=== PATIENT | male | born 1945 | race Caucasian/White ===

== ENCOUNTER 2018-03-15 15:14 | Inpatient (IN) ==
[2018-03-15] MEDS ORDERED: Sod Chloride 0.9% Inj 1,000 ML IV.SIG ONE (15:21)
--- NOTE | 2018-03-15 15:32 | ED ---
HPI General Chief Complaint: Medical Clearance Stated Complaint: evac Time Seen by Provider: 03/15/18 15:21 Source: patient and EMS Mode of arrival: EMS Limitations: no limitations History of Present Illness HPI narrative: 72-year-old male patient with history of a femoral bypass done at [facility] 4 days ago, released yesterday, presents to the ER today because he started not feeling well, abdominal pains, dizziness, and nausea. He had a blood pressure of 60/30 according to EMS while he was on the ambulance. He currently denies any fevers, chest pains, shortness of breath, or other issues. Modifying Factors: None Associated Signs & Symptoms: Not feeling well, abdominal pains, dizziness, nausea Risk Factors: Recent femoral bypass Related Data Home Medications Medication Instructions Recorded Confirmed codeine sulfate 30 mg PO Q4-6H PRN 03/15/18 03/15/18 hydrochlorothiazide 25 mg PO DAILY 03/15/18 03/15/18 lisinopril 40 mg PO DAILY 03/15/18 03/15/18 nicotine 1 patch TRANSDERMAL DAILY 03/15/18 03/15/18 omeprazole 20 mg PO DAILY 03/15/18 03/15/18 Allergies Allergy/AdvReac Type Severity Reaction Status Date / Time No Known Allergies Allergy Verified 03/15/18 15:20 Review of Systems ROS: all other systems reviewed are negative PMFSH History History Provided By: 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 Medical History Medical History Adenocarcinoma (Acute) CAD (coronary artery disease) (Acute) GERD (gastroesophageal reflux disease) (Acute) HTN (hypertension) (Acute) Surgical History Surgical History S/P femoral-femoral bypass surgery (Acute) Social History Social History Substance History: No History of Abuse Second Hand Smoke Exposure: Yes Smoking Status: Current every day smoker Tobacco Type: Cigarettes How Often Do You Have a Drink Containing Alcohol: 4 or more times a week Recent Travel in [facility] within the Last 8 Weeks: No Recent Out of Country Travel within the Last 8 Weeks: No Exam Narrative Exam Narrative: GENERAL: Well-developed elderly male patient currently and moderate to severe distress. Awake, alert, lethargic. SKIN: Focused skin assessment cool and diaphoretic. HEAD: Atraumatic. Normocephalic. EYES: Pupils equal and round. No scleral icterus. No injection or drainage. ENT: No nasal bleeding or discharge. Mucous membranes pink and moist. NECK: Trachea midline. No JVD. CARDIOVASCULAR: Regular rate and rhythm. No murmur appreciated. RESPIRATORY: No accessory muscle use. Clear to auscultation. Breath sounds equal bilaterally. GASTROINTESTINAL: Abdomen soft, non-tender, nondistended. Significant groin area ecchymosis bilaterally. Inguinal incisions appear to be clean, dry, intact. Hepatic and splenic margins not palpable. MUSCULOSKELETAL: No obvious deformities. No clubbing. No cyanosis. No edema. Both lower extremities are cool, decreased pulses bilaterally worse on the right than the left. NEUROLOGICAL: Awake and alert. No obvious cranial nerve deficits. Motor grossly within normal limits. Normal speech. PSYCHIATRIC: Appropriate mood and affect; insight and judgment poor. Course Initial Documented Vital Signs Temperature 97.7 F 03/15/18 15:20 Pulse Rate 101 H 03/15/18 15:20 Respiratory Rate 19 03/15/18 15:20 Blood Pressure 138/68 03/15/18 15:20 Pulse Oximetry 98 03/15/18 15:20 Last Documented Vital Signs Temperature 97.7 F 03/15/18 15:20 Pulse Rate 72 03/15/18 17:46 Respiratory Rate 15 03/15/18 17:46 Blood Pressure 126/63 03/15/18 17:46 Pulse Oximetry 95 03/15/18 17:46 Medical Decision Making MDM Narrative Medical decision making narrative: Several boluses of IV fluids were given due to hypotension. His hemoglobin is on the low side and considering that he is hypotensive, 2 units of PRBCs were also given. There was concerned that there could be an intra-abdominal bleeding secondary to recent bypass of the femoral vessels. CAT scan with runoff was ordered for further evaluation. I have discussed the history as well as findings at length with patient's daughters and patient, and they have notified me that he is a DNR. DNR paperwork was ordered for the patient. CT returned not showing any obvious acute processes. It appears that the femorofemoral bypass is functioning. I have discussed the case with Dr. Carreon as well who states he will follow. Case was then discussed with Dr. Aldana for admission for further treatment. Aggregate critical care time was 35 minutes. Time to perform other separately billable procedures was not included in the critical care time. My time did not include minutes spent treating any other patients simultaneously or on activities that did not directly contribute to the patient's treatment. The services I provided to this patient were to treat and/or prevent clinically significant deterioration that could result in: Acute intra-abdominal bleeding, hemorrhagic shock, I provided critical care services requiring my management, as noted below: Chart data review, documentation time, medication orders and management, vital sign assessments/reviewing monitor data, ordering and reviewing lab tests, ordering and interpreting/reviewing x-rays and diagnostic studies, care of the patient and discussion of the patient with the admitting physicians. Medical Screen Exam Complete: Yes Emergency Medical Condition: Yes Differential Diagnosis Differential Diagnosis: Symptomatic anemia versus dysrhythmias versus ACS versus acute intra-abdominal processes Lab Data Lab results reviewed: Yes I reviewed the patient's lab results. Result diagrams: 03/15/18 15:26 03/15/18 15:26 Lab Results 03/15/18 03/15/18 03/15/18 Range/Units 15:26 15:26 15:26 WBC 9.3 (4.0-11.0) th/mm3 RBC 2.36 L (4.50-5.90) mil/mm3 Hgb 8.8 L (13.0-17.0) gm/dL Hct 26.1 L (39.0-51.0) % MCV 110.7 H (80.0-100.0) fL MCH 37.5 H (27.0-34.0) pg MCHC 33.9 (32.0-36.0) % RDW 16.0 (11.6-17.2) % Plt Count 130 L (150-450) th/mm3 MPV 7.5 (7.0-11.0) fL Neut % (Auto) 61.5 (16.0-70.0) % Lymph % (Auto) 27.8 (9.0-44.0) % [place] % (Auto) 9.3 H (0.0-8.0) % Eos % (Auto) 1.2 (0.0-4.0) % Baso % (Auto) 0.2 (0.0-2.0) % Neut # (Auto) 5.7 (1.8-7.7) th/mm3 Lymph # (Auto) 2.6 (1.0-4.8) th/mm3 [place] # (Auto) 0.9 (0.0-0.9) th/mm3 Eos # (Auto) 0.1 (0.0-0.4) th/mm3 Baso # (Auto) 0.0 (0.0-0.2) th/mm3 WBC Differential . Differential Comment Auto diff final Puncture Site Patient Temperature O2 Saturation (90-100) % ABG pH (7.380-7.420) ABG pCO2 (38-42) mmHg ABG pO2 (61-120) mmHg ABG HCO3 (22-26) mmol/L ABG O2 Content (12.0-20.0) Vol % ABG Base Excess (-2-2) mmol/L ABG Methemoglobin (0-2) % [place] Test Hemoglobin (12.0-16.0) G/DL Carboxyhemoglobin (0-4) % O2 Delivery Device Critical Value Sodium 136 (136-145) meq/L Potassium 3.6 (3.5-5.1) meq/L Chloride 105 (98-107) meq/L Carbon Dioxide 20.7 L (21.0-32.0) meq/L Anion Gap 10 (5-15) meq/L BUN 12 (7-18) mg/dL Creatinine 0.96 (0.60-1.30) mg/dL Estimated GFR 77 L (>89) mL/min Random Glucose 143 H (74-106) mg/dL Calcium 7.0 L* (8.5-10.1) mg/dL Calcium Adj for Albumin 8.4 L (8.5-10.1) mg/dL Magnesium (1.5-2.5) mg/dL Total Bilirubin 0.3 (0.2-1.0) mg/dL AST 23 (15-37) U/L ALT 20 (12-78) U/L Alkaline Phosphatase 72 (45-117) U/L Troponin I Less than 0.02 L (0.02-0.05) ng/mL Total Protein 5.1 L (6.4-8.2) g/dL Albumin 2.2 L (3.4-5.0) g/dL Serum Alcohol 9 H Cancelled (0-5) mg/dL MTS Gel Crossmatch 03/15/18 03/15/18 03/15/18 Range/Units 15:26 15:35 17:35 WBC (4.0-11.0) th/mm3 RBC (4.50-5.90) mil/mm3 Hgb (13.0-17.0) gm/dL Hct (39.0-51.0) % MCV (80.0-100.0) fL MCH (27.0-34.0) pg MCHC (32.0-36.0) % RDW (11.6-17.2) % Plt Count (150-450) th/mm3 MPV (7.0-11.0) fL Neut % (Auto) (16.0-70.0) % Lymph % (Auto) (9.0-44.0) % [place] % (Auto) (0.0-8.0) % Eos % (Auto) (0.0-4.0) % Baso % (Auto) (0.0-2.0) % Neut # (Auto) (1.8-7.7) th/mm3 Lymph # (Auto) (1.0-4.8) th/mm3 [place] # (Auto) (0.0-0.9) th/mm3 Eos # (Auto) (0.0-0.4) th/mm3 Baso # (Auto) (0.0-0.2) th/mm3 WBC Differential Differential Comment Puncture Site Left radial Left brachial Patient Temperature 98.6 98.6 O2 Saturation 95 88 L* (90-100) % ABG pH 7.34 L 7.40 (7.380-7.420) ABG pCO2 31 L 34 L (38-42) mmHg ABG pO2 89 62 (61-120) mmHg ABG HCO3 16 L* 21 L (22-26) mmol/L ABG O2 Content 11.2 L 11.6 L (12.0-20.0) Vol % ABG Base Excess -8.5 L -3.3 L (-2-2) mmol/L ABG Methemoglobin 0.4 0.6 (0-2) % [place] Test Y Y Hemoglobin 8.3 L 9.3 L (12.0-16.0) G/DL Carboxyhemoglobin 1.5 1.6 (0-4) % O2 Delivery Device Ra Ra Critical Value Yes Yes Sodium (136-145) meq/L Potassium (3.5-5.1) meq/L Chloride (98-107) meq/L Carbon Dioxide (21.0-32.0) meq/L Anion Gap (5-15) meq/L BUN (7-18) mg/dL Creatinine (0.60-1.30) mg/dL Estimated GFR (>89) mL/min Random Glucose (74-106) mg/dL Calcium (8.5-10.1) mg/dL Calcium Adj for Albumin (8.5-10.1) mg/dL Magnesium 1.7 (1.5-2.5) mg/dL Total Bilirubin (0.2-1.0) mg/dL AST (15-37) U/L ALT (12-78) U/L Alkaline Phosphatase (45-117) U/L Troponin I (0.02-0.05) ng/mL Total Protein (6.4-8.2) g/dL Albumin (3.4-5.0) g/dL Serum Alcohol (0-5) mg/dL MTS Gel Crossmatch 03/15/18 Range/Units 17:41 WBC (4.0-11.0) th/mm3 RBC (4.50-5.90) mil/mm3 Hgb (13.0-17.0) gm/dL Hct (39.0-51.0) % MCV (80.0-100.0) fL MCH (27.0-34.0) pg MCHC (32.0-36.0) % RDW (11.6-17.2) % Plt Count (150-450) th/mm3 MPV (7.0-11.0) fL Neut % (Auto) (16.0-70.0) % Lymph % (Auto) (9.0-44.0) % [place] % (Auto) (0.0-8.0) % Eos % (Auto) (0.0-4.0) % Baso % (Auto) (0.0-2.0) % Neut # (Auto) (1.8-7.7) th/mm3 Lymph # (Auto) (1.0-4.8) th/mm3 [place] # (Auto) (0.0-0.9) th/mm3 Eos # (Auto) (0.0-0.4) th/mm3 Baso # (Auto) (0.0-0.2) th/mm3 WBC Differential Differential Comment Puncture Site Patient Temperature O2 Saturation (90-100) % ABG pH (7.380-7.420) ABG pCO2 (38-42) mmHg ABG pO2 (61-120) mmHg ABG HCO3 (22-26) mmol/L ABG O2 Content (12.0-20.0) Vol % ABG Base Excess (-2-2) mmol/L ABG Methemoglobin (0-2) % [place] Test Hemoglobin (12.0-16.0) G/DL Carboxyhemoglobin (0-4) % O2 Delivery Device Critical Value Sodium (136-145) meq/L Potassium (3.5-5.1) meq/L Chloride (98-107) meq/L Carbon Dioxide (21.0-32.0) meq/L Anion Gap (5-15) meq/L BUN (7-18) mg/dL Creatinine (0.60-1.30) mg/dL Estimated GFR (>89) mL/min Random Glucose (74-106) mg/dL Calcium (8.5-10.1) mg/dL Calcium Adj for Albumin (8.5-10.1) mg/dL Magnesium (1.5-2.5) mg/dL Total Bilirubin (0.2-1.0) mg/dL AST (15-37) U/L ALT (12-78) U/L Alkaline Phosphatase (45-117) U/L Troponin I (0.02-0.05) ng/mL Total Protein (6.4-8.2) g/dL Albumin (3.4-5.0) g/dL Serum Alcohol (0-5) mg/dL MTS Gel Crossmatch See Detail Imaging Data Attestation: I personally reviewed and interpreted this imaging study as follows : Radiologist's impression: Chest X-Ray 03/15/18 15:22 CONCLUSION: Right mid lateral masslike area could be a lung mass versus focal consolidation. Aorta w/Runoff CTA 03/15/18 15:24 CONCLUSION: 1. 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 2. The fem-fem graft appears patent. 3. High-grade stenosis involving the right SFA, bilateral popliteal arteries with diminutive 2 vessel runoff to left ankle and single vessel runoff to right ankle. Discharge Plan Discharge Disposition Patient Disposition: ED Admit(ED Internal Use Only) Discharge Condition Condition: Critical Discharge Order Discharge Orders: ED Use Only Admit Order (Routine); Ordered 03/15/18 Ordered By: Chloe Tomlin Discharge Details Anticipated Discharge Date: 03/15/18 Diagnosis: Acute hypotension Physicians Team ED Provider: Chloe Tomlin Primary Care Provider: UNKNOWN, Attending Provider: Edyta Aldana Other Providers: Davie George Slobodan Discharge Interventions Interventions: Vital Signs Last Done: 03/15/18 16:44 Status ED Status: Admitted Patient
[2018-03-15] MEDS ORDERED: Morphine Sulfate Inj 2 MG/ML Vial IV.PUSH ONE (15:48)
[2018-03-15 15:55] LABS: Baso % (Auto) 0.2 % (0.0-2.0); Eos # (Auto) 0.1 th/mm3 (0.0-0.4); Eos % (Auto) 1.2 % (0.0-4.0); Hematocrit 26.1 % (39.0-51.0); Hemoglobin 8.8 gm/dL (13.0-17.0); Lymph # (Auto) 2.6 th/mm3 (1.0-4.8); Lymph % (Auto) 27.8 % (9.0-44.0); Mean Corpuscular HGB Conc 33.9 % (32.0-36.0); Mean Corpuscular Hemoglobin 37.5 pg (27.0-34.0); Mean Corpuscular Volume 110.7 fL (80.0-100.0); Mean Platelet Volume 7.5 fL (7.0-11.0); Mono # (Auto) 0.9 th/mm3 (0.0-0.9); Mono % (Auto) 9.3 % (0.0-8.0); Neut # (Auto) 5.7 th/mm3 (1.8-7.7); Neut % (Auto) 61.5 % (16.0-70.0); Platelet Count 130 th/mm3 (150-450); Red Blood Count 2.36 mil/mm3 (4.50-5.90); White Blood Count 9.3 th/mm3 (4.0-11.0)
[2018-03-15 15:59] LABS: Alanine Aminotransferase 20 U/L (12-78); Albumin 2.2 g/dL (3.4-5.0); Alkaline Phosphatase 72 U/L (45-117); Anion Gap 10 meq/L (5-15); Aspartate Aminotransferase 23 U/L (15-37); Blood Urea Nitrogen 12 mg/dL (7-18); Carbon Dioxide 20.7 meq/L (21.0-32.0); Chloride 105 meq/L (98-107); Glomerular Filtration Rate 77 mL/min (>89); Glucose,Random 143 mg/dL (74-106); Potassium 3.6 meq/L (3.5-5.1); Sodium 136 meq/L (136-145); Total Protein 5.1 g/dL (6.4-8.2)
[2018-03-15 16:03] LABS: ABG Base Excess -8.5 mmol/L (-2-2); ABG PCO2 31 mmHg (38-42); ABG PO2 89 mmHg (61-120)
--- NOTE | 2018-03-15 16:06 | XR ---
EXAM DATE: 03/15/2018 3:54 PM EST AGE/SEX: 72 years / Male INDICATIONS: Hypotensive episode with general ailment with history of femoral bypass surgery four da ys ago. CLINICAL DATA: This is the patient's initial encounter. Patient reports that signs and symptoms have been present for 1 day and indicates a pain score of 0/10. MEDICAL/SURGICAL HISTORY: Hypertension. Gastroesophageal reflux disease. CAD. . Fem bypass. COMPARISON: No prior exams available for comparison. FINDINGS: Approximate 3 cm mass versus focal consolidation is seen in right midlung laterally. Heart and mediastinum are unremarkable for technique. CONCLUSION: Right mid lateral masslike area could be a lung mass versus focal consolidation. Electronically signed by: Tristian Adams MD Board Certified Radiologist 03/15/2018 4:05 PM EST
[2018-03-15 16:07] LABS: Alcohol 9 mg/dL (0-5)
[2018-03-15] MEDS ORDERED: Sodium Phosphate Inj 30 MMOL in Sodium Chlor 0.9% Inj 250 ML IV.SIG PRN (16:39)
[2018-03-15] MEDS ORDERED: Potassium Chloride 25 MEQ Effervescent Tablet PO PRN (16:39)
[2018-03-15] MEDS ORDERED: Magnesium Sulfate Inj 4 GM in Sodium Chlor 0.9% Inj 92 ML IV.SIG PRN (16:39)
[2018-03-15] MEDS ORDERED: Potassium Chlor 40 mEq Premix 40 MEQ/100 ML PIGGYBACK IV.SIG PRN ×2 (16:39→18:00)
[2018-03-15] MEDS ORDERED: Potassium Phosphate 500 MG Soluble Tablet PO PRN ×2 (16:39)
[2018-03-15] MEDS ORDERED: Magnesium Sulfate Inj 2 GM in Sodium Chlor 0.9% Inj 96 ML IV.SIG PRN (16:39)
[2018-03-15] MEDS ORDERED: Potassium Phosphate Inj 30 MMOL in Sodium Chlor 0.9% Inj 250 ML IV.SIG PRN (16:39)
[2018-03-15] MEDS ORDERED: Bisacodyl 10 MG Supp RECTAL PRN (16:39)
[2018-03-15] MEDS ORDERED: Magnesium Oxide 400 MG Tablet PO PRN (16:39)
[2018-03-15] MEDS ORDERED: Potassium Chlor 20 mEq Premix 20 MEQ/100 ML PIGGYBACK IV.SIG PRN ×2 (16:39)
[2018-03-15] MEDS ORDERED: Sodium Chlor 0.9% Inj 500 ML IV.SIG SCH (17:00)
[2018-03-15] MEDS ORDERED: Sodium Chlor 0.9% Inj 250 ML IV.SIG SCH (17:00)
--- NOTE | 2018-03-15 17:14 | P.PNVS ---
Subjective Subjective/Hospital Course: Referral received, patient seen and examined Full consult dictated Thanks J Objective Vital Signs / I&O: Vital Signs 03/15/18 15:20 03/15/18 15:30 03/15/18 15:35 Temperature 97.7 F Pulse Rate 101 H 91 H Respiratory Rate 19 20 Blood Pressure 138/68 151/63 H Pulse Oximetry 98 97 98 03/15/18 16:01 03/15/18 16:17 03/15/18 16:44 Temperature Pulse Rate Respiratory Rate Blood Pressure 98/50 L 104/49 L 125/61 Pulse Oximetry 03/15/18 16:56 Temperature Pulse Rate Respiratory Rate Blood Pressure Pulse Oximetry 98 Intake & Output 03/14/18 03/15/18 03/15/18 18:59 06:59 18:59 Intake Total 1500 / 1500 Balance 1500 / 1500 Weight 77.564 kg Intake: IV 1500 / 1500 NS Inj 1,000 ML @ Wide Open IV. 1000 / 1000 SIG BOLUS ONE Rx#:[id number] NS Inj 500 ML @ 1000 mls/hr IV. 500 / 500 SIG BOLUS JAHAIRA Rx#:[id number] Laboratory Results - last 24 hr 03/15/18 03/15/18 03/15/18 15:26 15:26 15:26 WBC 9.3 RBC 2.36 L Hgb 8.8 L Hct 26.1 L MCV 110.7 H MCH 37.5 H MCHC 33.9 RDW 16.0 Plt Count 130 L MPV 7.5 Neut % (Auto) 61.5 Lymph % (Auto) 27.8 [place] % (Auto) 9.3 H Eos % (Auto) 1.2 Baso % (Auto) 0.2 Neut # (Auto) 5.7 Lymph # (Auto) 2.6 [place] # (Auto) 0.9 Eos # (Auto) 0.1 Baso # (Auto) 0.0 WBC Differential . Differential Comment Auto diff final Puncture Site Patient Temperature O2 Saturation ABG pH ABG pCO2 ABG pO2 ABG HCO3 ABG O2 Content ABG Base Excess ABG Methemoglobin [place] Test Hemoglobin Carboxyhemoglobin O2 Delivery Device Critical Value Sodium 136 Potassium 3.6 Chloride 105 Carbon Dioxide 20.7 L Anion Gap 10 BUN 12 Creatinine 0.96 Estimated GFR 77 L Random Glucose 143 H Calcium 7.0 L* Calcium Adj for Albumin 8.4 L Magnesium Total Bilirubin 0.3 AST 23 ALT 20 Alkaline Phosphatase 72 Troponin I Less than 0.02 L Total Protein 5.1 L Albumin 2.2 L Serum Alcohol 9 H Cancelled 03/15/18 03/15/18 15:26 15:35 WBC RBC Hgb Hct MCV MCH MCHC RDW Plt Count MPV Neut % (Auto) Lymph % (Auto) [place] % (Auto) Eos % (Auto) Baso % (Auto) Neut # (Auto) Lymph # (Auto) [place] # (Auto) Eos # (Auto) Baso # (Auto) WBC Differential Differential Comment Puncture Site Left radial Patient Temperature 98.6 O2 Saturation 95 ABG pH 7.34 L ABG pCO2 31 L ABG pO2 89 ABG HCO3 16 L* ABG O2 Content 11.2 L ABG Base Excess -8.5 L ABG Methemoglobin 0.4 [place] Test Y Hemoglobin 8.3 L Carboxyhemoglobin 1.5 O2 Delivery Device Ra Critical Value Yes Sodium Potassium Chloride Carbon Dioxide Anion Gap BUN Creatinine Estimated GFR Random Glucose Calcium Calcium Adj for Albumin Magnesium 1.7 Total Bilirubin AST ALT Alkaline Phosphatase Troponin I Total Protein Albumin Serum Alcohol Impressions Chest X-Ray 03/15/18 15:22 CONCLUSION: Right mid lateral masslike area could be a lung mass versus focal consolidation.
[2018-03-15] MEDS: Sod Chloride 0.9% Inj 1,000 ML IV.CONT SCH (17:45)
--- NOTE | 2018-03-15 17:56 | P.HPCC ---
History of Present Illness Service: ICU Primary Care Physician: UNKNOWN History of Present Illness: This is a 72 year old male that presented to the ED this afternoon. Prior to this, the patient had been treated at the [facility] in [facility] and had undergone a right femoral bypass surgery for severe peripheral vascular disease 2 days ago. The patient was noted to be recently diagnosed with adenocarcinoma of the lung and was being clinically worked up when he was found to have severe peripheral vascular disease and initially scheduled for aortobifemoral bypass, however the patient was noted to be not medically optimized and the decision was made to do a femoral bypass. The patient has a history significant for COPD with long history of smoking ,so subsequently his surgery was performed under epidural anesthesia due to significant risk of deterioration in respiratory status. The patient medical history is also significant for heavy alcohol use at which he had stopped drinking 8-10 beers a day approximately 3 months ago in anticipation of surgery. However the patient continued to consume a half a gallon of vodka every 3 days. The patient was discharged from [facility] after early this a.m. and transported with family back to his home in [facility]. Immediately upon arrival, in approximately 1 hour ,the patient became agitated diaphoretic and began to have tremors the family assumed this was due to delirium tremens and gave the patient vodka to drink. At this point the patient went to the bedroom to lay down ,but continued to be agitated and have episodes of nausea and vomiting and complaint of severe abdominal pain. Of note, the patient has has a history of hypertension and had received lisinopril and hydrochlorothiazide early this a.m. at the hospital. With his progressive deterioration at home EMS was notified and upon their presentation the patient was noted to have a blood pressure systolic blood pressure in the 60s. The patient received several liters of IV fluid and enroute to the hospital he also received atropine per report. Upon admission to the ED the patient continued to have a low blood pressure received several more liters of fluid and the patient labs and imaging studies were performed. The patient was noted to have a metabolic acidosis. CT of the abdomen and pelvis with contrast and aortic runoff currently is pending. Patient's hemoglobin was noted to be 8.8, a type and screen was performed and 2 units of packed cells were ordered. Discussion with the ED physician, vascular surgery was consulted awaiting evaluation/recommendations. All history obtained was by family, according to their report the patient was worked up for surgery his ejection fraction was 75%, the patient has had chronic nausea and vomiting and was on omeprazole at home. With the recent diagnosis adenocarcinoma of the lung per report bilateral lower lobes the patient has requested CODE STATUS of DNR which was reiterated in the ED by himself as well as his family members. Patient was scheduled for radiation therapy in April 2018. critical care medicine has been consulted. Inpatient Certification: I certify that the inpatient services were ordered in accordance with Medicare regulations governing the order. This includes certification that hospital inpatient services are reasonable and necessary and in the case of services not specified as inpatient-only under 42 CFR 419.22(n), that they are appropriately provided as inpatient services in accordance to with the 2-midnight benchmark under 43 CFR 412.3(e) Estimated Total Length of Stay (Days): 5 Plans for Post Hospital Care: Not yet determined Review of Systems All other systems reviewed negative except as stated in HPI Constitutional: Reports excessive sweating, Reports lack of energy Cardiovascular: Reports leg pain with activity (Severe PVD) Gastrointestinal: Reports abdominal pain, Reports nausea, Reports vomiting Musculoskeletal: Reports abnormal walking, Reports muscle weakness, Reports radiating pain into limb Skin/Breast: Reports other (echhymotic bruising) Psychiatric: Reports anxiety PMFSH - History History Provided By: Patient, 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, 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 - Medical History Medical History: Medical History (Last Updated 03/15/18 @ 15:53 by Cleo Lay) Adenocarcinoma CAD (coronary artery disease) GERD (gastroesophageal reflux disease) HTN (hypertension) - Surgical History Surgical History: Surgical History (Last Reviewed 03/15/18 @ 15:29 by Chloe Tomlin MD) S/P femoral-femoral bypass surgery - Tobacco History Second Hand Smoke Exposure: Yes Tobacco Use In Past 30 Days: Yes Smoking Status: Current every day smoker Tobacco Type: Cigarettes - Alcohol History How Often Do You Have a Drink Containing Alcohol: 4 or more times a week - Substance Use History Substance History: No History of Abuse - Travel History Recent Travel in the [place] Within the Last 8 Weeks: No Recent Travel Out of the Country Within the Last 8 Weeks: No - Immunization History Tetanus Immunization: Unsure Medications and Allergies Active Medications: Active Medications Acetaminophen (Tylenol) 650 mg PO Q6H PRN PRN Reason: PAIN 1-10 AND/OR FEVER >101F Al Hydroxide/Mg Hydroxide (Milk Of Albertina Liemile) 30 ml PO Q12H PRN PRN Reason: Mild Constipation Albuterol (Duoneb Neb (Prn)) 1 ampul NEB Q2HR NEB PRN PRN Reason: WHEEZING Bisacodyl (Dulcolax Supp) 10 mg RECTAL DAILY PRN PRN Reason: SEVERE CONSITIPATION Chlordiazepoxide (Librium) 5 mg PO Q8H PRN PRN Reason: AGITATION AND/OR HALLUCINATION Chlorhexidine Gluconate (Chlorhexidine 2% Cloth) 3 pack TOPICAL DAILY@0400 JAHAIRA Stop: 03/21/18 03:59 Chlorhexidine Gluconate (Chlorhexidine 2% Cloth) 3 pack TOPICAL DAILY@0400 PRN PRN Reason: Extra cloth needed Stop: 03/21/18 03:59 Famotidine (Pepcid Pf Inj) 20 mg IV.PUSH Q12HR JAHAIRA Sodium Chloride (Ns Inj) 250 mls @ 15 mls/hr IV.SIG ONCE JAHAIRA Stop: 03/16/18 09:39 Magnesium Sulfate 4 gm/ Sodium (Chloride) 100 mls @ 50 mls/hr IV.SIG UNSCH PRN PRN Reason: For Magnesium 0.9 - 1.1 mg/dL Sodium Chloride (Ns Inj) 1,000 mls @ 84 mls/hr IV.CONT .[id number] JAHAIRA Potassium Chloride (Kcl 40 Meq Premix Inj) 40 meq in 100 mls @ 25 mls/hr IV.SIG Q2H PRN PRN Reason: For Potassium 2.8 - 3.2 mEq/L Potassium Chloride (Kcl 20 Meq Premix Inj) 20 meq in 100 mls @ 50 mls/hr IV.SIG Q2H PRN PRN Reason: For Potassium 3.3 - 3.5 mEq/L Potassium Chloride (Kcl 40 Meq Premix Inj) 40 meq in 100 mls @ 25 mls/hr IV.SIG UNSCH PRN PRN Reason: For Potassium 3.3 - 3.5 mEq/L Potassium Chloride (Kcl 20 Meq Premix Inj) 20 meq in 100 mls @ 50 mls/hr IV.SIG Q2H PRN PRN Reason: For Potassium 2.8 - 3.2 mEq/L Potassium Phosphate 30 mmol/ (Sodium Chloride) 260 mls @ 42 mls/hr IV.SIG UNSCH PRN PRN Reason: SEE LABEL COMMENTS Sodium Phosphate 30 mmol/ (Sodium Chloride) 260 mls @ 42 mls/hr IV.SIG UNSCH PRN PRN Reason: For Phosphorus < 2.5 mg/dL Magnesium Sulfate 2 gm/ Sodium (Chloride) 100 mls @ 50 mls/hr IV.SIG UNSCH PRN PRN Reason: For Magnesium 1.2 - 1.6 mg/dL Lactulose (Lactulose Liq) 30 ml PO DAILY PRN PRN Reason: SEVERE CONSITIPATION Lorazepam (Ativan Inj) 1 mg IV.PUSH Q4H PRN PRN Reason: SEIZURES Magnesium Oxide (Mag-Ox) 800 mg PO UNSCH PRN PRN Reason: For Magnesium 1.2 - 1.6 mg/dL Nicotine (Habitrol 14 Mg Patch.24 Hr) 1 patch T-DERMAL DAILY JAHAIRA Ondansetron HCl (Zofran Inj) 4 mg IV.PUSH Q6H PRN PRN Reason: NAUSEA OR VOMITING Patch Removal (Remove Old Patch) 1 each T-DERMAL HS JAHAIRA Potassium Bicarb/Potassium Chloride (K-Lyte Cl Eff) 50 meq PO UNSCH PRN PRN Reason: For Potassium 3.3 - 3.5 mEq/L Potassium Phosphate (K-Phos Original) 2,000 mg PO Q4H PRN PRN Reason: Phosphorus Less Than 2.5 mg/dL Potassium Phosphate (K-Phos Original) 2,000 mg PO UNSCH PRN PRN Reason: SEE LABEL COMMENTS Senna/Docusate Sodium (Fatoumata-Colace) 1 tab PO BID [facility] Sennosides (Senokot) 17.2 mg PO Q12H PRN PRN Reason: Moderate Constipation Sodium Chloride (Ns Flush) 2 ml IV.FLUSH BID JAHAIRA Sodium Chloride (Ns Flush) 2 ml IV.FLUSH PRN PRN PRN Reason: FLUSH AFTER USING IV ACCESS Allergies Allergy/AdvReac Type Severity Reaction Status Date / Time No Known Allergies Allergy Verified 03/15/18 15:20 Home Medications Medication Instructions Recorded Confirmed Type codeine sulfate 30 mg PO Q4-6H PRN 03/15/18 03/15/18 History hydrochlorothiazide 25 mg PO DAILY 03/15/18 03/15/18 History lisinopril 40 mg PO DAILY 03/15/18 03/15/18 History nicotine 1 patch TRANSDERMAL DAILY 03/15/18 03/15/18 History omeprazole 20 mg PO DAILY 03/15/18 03/15/18 History Results - Labs CBC & Chem 7: 03/15/18 15:26 03/15/18 15:26 Labs: Short CBC 03/15/18 Range/Units 15:26 WBC 9.3 (4.0-11.0) th/mm3 Hgb 8.8 L (13.0-17.0) gm/dL Hct 26.1 L (39.0-51.0) % Plt Count 130 L (150-450) th/mm3 BMP 03/15/18 15:26 Sodium 136 Potassium 3.6 Chloride 105 Carbon Dioxide 20.7 L BUN 12 Creatinine 0.96 Calcium 7.0 L* Cardiac Enzymes 03/15/18 Range/Units 15:26 Troponin I Less than 0.02 L (0.02-0.05) ng/mL Liver Function 03/15/18 Range/Units 15:26 Total Bilirubin 0.3 (0.2-1.0) mg/dL AST 23 (15-37) U/L ALT 20 (12-78) U/L Alkaline Phosphatase 72 (45-117) U/L Albumin 2.2 L (3.4-5.0) g/dL - Imaging Impressions Chest X-Ray 03/15/18 15:22 CONCLUSION: Right mid lateral masslike area could be a lung mass versus focal consolidation. Exam Vital signs: Vital Signs 03/15/18 15:20 03/15/18 15:30 03/15/18 15:35 Temperature 97.7 F Pulse Rate 101 H 91 H Respiratory Rate 19 20 Blood Pressure 138/68 151/63 H Pulse Oximetry 98 97 98 03/15/18 16:01 03/15/18 16:17 03/15/18 16:44 Temperature Pulse Rate Respiratory Rate Blood Pressure 98/50 L 104/49 L 125/61 Pulse Oximetry 03/15/18 16:56 03/15/18 17:21 Temperature Pulse Rate Respiratory Rate Blood Pressure 132/59 L Pulse Oximetry 98 Intake & Output 03/14/18 03/15/18 03/15/18 18:59 06:59 18:59 Intake Total 1500 / 1500 Balance 1500 / 1500 Weight 77.564 kg Intake: IV 1500 / 1500 NS Inj 1,000 ML @ Wide Open IV. 1000 / 1000 SIG BOLUS ONE Rx#:[id number] NS Inj 500 ML @ 1000 mls/hr IV. 500 / 500 SIG BOLUS JAHAIRA Rx#:[id number] - Constitutional mild distress, average body habitus, chronically ill appearing, somnolent - Routine HEENT Exam Head: Present: normocephalic Eye: Present: EOMI, PERRL, normal accommodation ENT: Present: mucous membranes moist - Routine Neck Exam Present: supple, full ROM - Routine Cardiovascular Exam Present: RRR, S1, S2 - Routine Abdominal Exam Present: soft, normoactive bowel sounds, surgical scars (Right groin with ecchymotic bruising Dermabond noted), wound (Right femoral ecchymotic bruise, Dermabond noted) - Routine Extremities Exam Present: normal capillary refill (Left lower extremity, sluggish capillary refill right lower extremity,), extremity cold to touch (Right) - Routine Skin Exam Present: petechiae, ecchymosis - Routine Neurological Exam Present: alert, oriented X3, CN II-XII intact, normal reflexes, moving all extremities, normal tone, vision grossly intact Caprini VTE Risk Assessment Caprini VTE Risk Assessment: Moderate/High Risk (score >= 2) Caprini Risk Assessment Model: Point Value = 1 Point Value = 2 Point Value = 3 Point Value = 5 Age 41-60 Minor surgery BMI > 25 kg/m2 Swollen legs Varicose veins or History of unexplained or recurrent spontaneous Oral contraceptives or hormone replacement Sepsis (< 1 month) Serious lung disease, including pneumonia (< 1 month) Abnormal pulmonary function Acute myocardial infarction Congestive heart failure (< 1 month) History of inflammatory bowel disease Medical patient at bed rest Age 61-74 Arthroscopic surgery Major open surgery (> 45 min) Laparoscopic surgery (> 45 min) Malignancy Confined to bed (> 72 hours) Immobilizing plaster cast Central venous access Age >= 75 History of VTE Family history of VTE Factor V Leiden Prothrombin [id number] Lupus anticoagulant Anticardiolipin antibodies Elevated serum homocysteine Heparin-induced thrombocytopenia Other congenital or acquired thrombophilia Stroke (< 1 month) Elective arthroplasty Hip, pelvis, or leg fracture Acute spinal cord injury (< 1 month) Prophylaxis Regimen: Total Risk Factor Score Risk Level Prophylaxis Regimen 0-1 Low Early ambulation 2 Moderate Order ONE of the following: *Sequential Compression Device (SCD) *Heparin 5000 units SQ BID 3-4 Higher Order ONE of the following medications: *Heparin 5000 units SQ TID *Enoxaparin/Lovenox 40 mg SQ daily (WT < 150 kg, CrCl > 30 mL/min) *Enoxaparin/Lovenox 30 mg SQ daily (WT < 150 kg, CrCl > 10-29 mL/min) *Enoxaparin/Lovenox 30 mg SQ BID (WT < 150 kg, CrCl > 30 mL/min) AND/OR *Sequential Compression Device (SCD) 5 or more Highest Order ONE of the following medications: *Heparin 5000 units SQ TID (Preferred with Epidurals) *Enoxaparin/Lovenox 40 mg SQ daily (WT < 150 kg, CrCl > 30 mL/min) *Enoxaparin/Lovenox 30 mg SQ daily (WT < 150 kg, CrCl > 10-29 mL/min) *Enoxaparin/Lovenox 30 mg SQ BID (WT < 150 kg, CrCl > 30 mL/min) AND *Sequential Compression Device (SCD) Assessment and Plan - Assessment and Plan Plan: Assessment This is a 72-year-old male postop day 2 status post right to left femoral bypass at [facility], now presenting with severe hypotension diaphoresis, nausea and vomiting. Patient's medical history significant for adenocarcinoma of the lung recently diagnosed and multiple comorbidities to include GERD, COPD chronic, coronary artery disease, hypertension, EtOH abuse. The patient is critically ill. Admit to ICU. Plan by systems: Neurologic: EtOH abuse Neuro checks per ICU Librium 5 mg every 8 hours as needed Seizure precautions Monitor for signs alcohol withdrawal Respiratory: COPD Tobacco abuse Obtain stat ABG-concern for CO2 narcosis O2 via nasal cannula 2 L/min Maintain O2 saturation greater than 92% Nicotine patchmedium dose daily Cardiovascular: Coronary artery disease Hypotension Currently normotensive-close monitoring of hourly vital signs needed Obtain serial troponin levels Obtain lactate levels every 6 hours Obtain EKG Stat consult to vascular surgery-Case was discussed with Dr. Martinez via Dr. Cleveland in ED Renal: Monitor BMP Replete electrolytes per ICU protocol -- Strict I/Os FEN/GI: Metabolic acidosis Nausea Vomiting Zofran for nausea Protonix twice daily Follow-up CT of the abdomen and pelvis, and aortic runoff Maintain n.p.o. status Heme/ID: Anemia Monitor serial hemoglobin and hematocrit. Possible acute blood loss in the Type and screen 2 units packed red blood cells placed on hold Obtain INR Endocrine: Glucose monitoring per ICU protocol Obtain hemoglobin A1c -- SSI Prophylaxis: GI Prophylaxis DVT Prophylaxis -- SCDs Hold pharmacological DVT prophylaxis for now concern for possible bleeding Lines: Peripheral IVs providing adequate access at this time. Central line if indicated Dispo: My billing statement This patient remains critically ill with one or more organ systems which are or may become a threat to life. I have spent in excess of 49 minutes discontinuously in the care and management of this patient. This time is exclusive of procedures, and includes, but is not limited to, evaluation of the patient, review of the medical record, discussions with family, consultants, nursing staff, or respiratory therapy, and documentation in the medical record. Code Status: DNR Discussed Condition With: Patient daughters at bedside Case discussed with ED physician
--- NOTE | 2018-03-15 17:56 | CT ---
EXAM DATE: 03/15/2018 4:43 PM EST AGE/SEX: 72 years / Male INDICATIONS: Endovascular repair leak, bilateral femoral bypass two days ago. CLINICAL DATA: This is the patient's initial encounter. Patient reports that signs and symptoms have been present for 3 days and indicates a pain score of 3/10. MEDICAL/SURGICAL HISTORY: None. . Femoral bypass, bilateral. RADIATION DOSE: 10.80 CTDI (mGy) COMPARISON: No prior exams available for comparison. TECHNIQUE: Volumetric scanning was performed using a multi-row detector CT scanner during bolus infu alycia of 100 ml Omnipaque 350 (iohexol) nonionic water-soluble contrast as a single exam dose. The data was post processed with a variety of visualization algorithms including full volume maximum inte nsity projection, multi-planar sliding thin slab reformation, curved planar reformation, and surface rendering techniques. Using automated exposure control and adjustment of the mA and/or kV according to patient size, radiation dose was kept as low as reasonably achievable to obtain optimal diagnostic quality images. DICOM format image data is available electronically for review and comparison. FINDINGS: There is pneumobilia within left hepatic lobe. There is no evidence for hemorrhage intraperitoneal or retroperitoneal. There is a fem-fem graft with gas bubbles in the patient's right groin most likely from post surgical changes in this patient who is 2 days postop. The celiac artery, SMA are grossly p atent with some degree of atherosclerotic disease at the origin. There are renal artery is also paten t bilaterally. Extensive vascular calcifications are present involving the aorta and the left common iliac artery is completely occluded. The right common iliac artery appears patent and there is a fem- fem graft which also appears patent and provides flow to the left common femoral artery. The left sup erficial femoral artery is completely occluded. The profundus is patent and supplies the upper latera l thigh. The right superficial femoral artery also demonstrates extensive atherosclerotic plaquing at multiple sites and there are multiple areas of high-grade stenosis within this vessel. There is exte nsive atherosclerotic disease involving bilateral popliteal arteries with high-grade stenosis on the left side which reconstitutes via collaterals and moderate to high-grade stenosis on the right side a s well. Below the knee there is also significant atherosclerotic disease bilaterally with diminutive 2 vessel runoff to left ankle and single vessel runoff to right ankle. CONCLUSION: 1. 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 2. The fem-fem graft appears patent. 3. High-grade stenosis involving the right SFA, bilateral popliteal arteries with diminutive 2 vesse l runoff to left ankle and single vessel runoff to right ankle. Electronically signed by: Tristian Adams MD Board Certified Radiologist 03/15/2018 5:55 PM EST
--- NOTE | 2018-03-15 17:59 | ECG ---
Date Performed: 03/15/2018 Time Performed: 15:20:13 PTAGE: 72 years EKG: SINUS TACHYCARDIA ST DEVIATION AND MODERATE T-WAVE ABNORMALITY, CONSIDER INFERIOR ISCHEMIA ABNORMAL ECG NO PREVIOUS TRACING DOCTOR: Ambrose Chacko Interpretating Date/Time 03/15/2018 17:56:58
[2018-03-15 18:00] LABS: ABG Base Excess -3.3 mmol/L (-2-2); ABG PCO2 34 mmHg (38-42); ABG PO2 62 mmHg (61-120)
[2018-03-15] MEDS: Pantoprazole Inj 40 MG Vial IV.PUSH SCH (19:25)
[2018-03-15] MEDS ORDERED: Famotidine PF Inj 20 MG/2 ML Vial IV.PUSH SCH (21:00)
[2018-03-15] MEDS: Senna/Docusate Sodium 8.6/50 MG Tablet PO SCH (22:11)
[2018-03-15 22:16] LABS: Alanine Aminotransferase 23 U/L (12-78); Albumin 2.4 g/dL (3.4-5.0); Aspartate Aminotransferase 32 U/L (15-37)
[2018-03-15 22:19] LABS: Alkaline Phosphatase 86 U/L (45-117); Total Protein 5.7 g/dL (6.4-8.2)
[2018-03-15] MEDS ORDERED: Morphine Inj 4 MG/ML Vial IV.PUSH PRN (23:39)
--- NOTE | 2018-03-15 23:53 | MB ---
cc: Paula Carreon MD DATE: 03/15/2018 CONSULTING PHYSICIAN: Paula Carreon MD, Vascular Surgery. REASON FOR CONSULTATION: Status post fem-fem bypass, abdominal pain, metabolic acidosis, hypotension, questionable sepsis, right metastatic lung cancer. HISTORY OF PRESENT DISEASE: This 72-year-old patient underwent, 2 days ago, a femoral-femoral bypass at [facility] for severe ischemia of the left leg. The patient did well and apparently was discharged from the hospital the next day. Today, the patient had an episode of abdominal pain, which is mainly epigastric and weakness with diaphoresis. According to his daughter, the patient suddenly started staring in the distance and became sort of catatonic appearing; the cause right now is being worked up. The patient underwent CTA of abdomen with a runoff and question arises if there are any vascular issues that need to be addressed. PAST MEDICAL HISTORY: 1. Hypertension. 2. Vascular occlusive disease. 3. Four-year history of right lung cancer, stage III, which diagnosed, but not treated until now. The patient is scheduled to have some radiation. 4. Coronary artery disease. PAST SURGICAL HISTORY: Fem-fem bypass. SOCIAL HISTORY: The patient smokes about 1/2-2 packs a day most of his adult life, about 55 years, and also he is a heavy drinker, apparently drinks about 8 beers a day plus half gallon of vodka every 3 days. He is a [employer] . PHYSICAL EXAMINATION: GENERAL: Reveals a 72-year-old male. HEENT: Normocephalic. No trauma to the head. Pupils equally reactive. Extraocular muscles intact. NECK: Bilateral carotid pulses. There are no bruits. CHEST: Bilateral breath sounds, decreased over both lung becker consistent with COPD. HEART: Regular rhythm at this time. ABDOMEN: Soft. On examination, the patient is not tender. There is no rebound or guarding when I examined him. Apparently, the patient earlier had pain in the emergency room. EXTREMITIES: Groins are normal. The patient does not have bowel obstruction. He has some bruising over the suprapubic area where the femoral-femoral bypass was performed 2 days ago, and this is expected. Some swelling in both groins. Incisions are dry. The graft is clearly patent. Pulses are dopplerable in both groins. The patient has no dopplerable popliteal pulses, and I do not perceive dopplerable dorsalis pedis or posterior tibial pulses. Feet are actually slightly pale, but warm. NEUROLOGIC: The patient is somewhat somnolent, but moves all 4 extremities. IMPRESSION AND RECOMMENDATIONS: 1. As far as vascular surgery is concerned, this patient has occlusion of the left common iliac artery and external iliac artery, so his left leg was severely ischemic. Femoral-femoral was done to bring some blood to the left leg, which was done successfully. Unfortunately, distal to that, the patient has virtual occlusion of both superficial femoral arteries and both popliteal arteries with very diminutive flow toward the feet. The deep femoral arteries were patent bilaterally, so this is basically supplying the legs. From vascular standpoint, there is nothing else to do here. A popliteal artery had been patent. The patient could have a bypass at some point or even arthrectomy of the superficial femoral artery; however, in this particular situation, popliteals are occluded, superficial femoral arteries are occluded, diminutive flow to the foot is a flow-limiting disease as well and there is nothing else we can do here. Femoral-femoral bypass was the best choice. 2. As far as the abdominal pain is concerned in this whole episode, I am not quite certain yet what is going on. Right now he is not tender, does not have rebound or guarding. Depending on his progression, he may need upper endoscopy. In addition, the patient could have ischemic bowel, considering that he had metabolic acidosis on arrival, but this may also been result of dehydration, very hard to tell. At this point, the patient should be managed conservatively. He received plenty of fluids. Considering the patient is being resuscitated, I believe Casarez catheter is appropriate and patient should not be catheterized repeatedly especially in the face of surgery and incisions next to the groin. I will continue to follow the patient. From a vascular point, there is nothing to do. We will see how he progresses. I have discussed this with both of his daughters. I thank you very much for referral. Critical care time 40 minutes. MD SHIVAM Grace/kar , 11:20 PM , 11:29 PM
[2018-03-16] MEDS ORDERED: Chlorhexidine Gluconate 2% 1 Pack (2 Cloths) TOPICAL PRN (04:00)
[2018-03-16] MEDS: Chlorhexidine Gluconate 2% 1 Pack (2 Cloths) TOPICAL SCH (07:20)
[2018-03-16] MEDS: Pantoprazole Inj 40 MG Vial IV.PUSH SCH ×2 (07:20→17:42)
[2018-03-16] MEDS: Sod Chloride 0.9% Inj 1,000 ML IV.CONT SCH ×2 (07:20→17:50)
--- NOTE | 2018-03-16 08:11 | P.PNCC ---
Subjective Subjective Remarks/Hospital Course: This is a 72 year old male that presented to the ED this afternoon. Prior to this, the patient had been treated at the [facility] in [facility] and had undergone a right femoral bypass surgery for severe peripheral vascular disease 2 days ago. The patient was noted to be recently diagnosed with adenocarcinoma of the lung and was being clinically worked up when he was found to have severe peripheral vascular disease and initially scheduled for aortobifemoral bypass, however the patient was noted to be not medically optimized and the decision was made to do a femoral bypass. The patient has a history significant for COPD with long history of smoking ,so subsequently his surgery was performed under epidural anesthesia due to significant risk of deterioration in respiratory status. The patient medical history is also significant for heavy alcohol use at which he had stopped drinking 8-10 beers a day approximately 3 months ago in anticipation of surgery. However the patient continued to consume a half a gallon of vodka every 3 days. The patient was discharged from [facility] after early this a.m. and transported with family back to his home in [facility]. Immediately upon arrival, in approximately 1 hour ,the patient became agitated diaphoretic and began to have tremors the family assumed this was due to delirium tremens and gave the patient vodka to drink. At this point the patient went to the bedroom to lay down ,but continued to be agitated and have episodes of nausea and vomiting and complaint of severe abdominal pain. Of note, the patient has has a history of hypertension and had received lisinopril and hydrochlorothiazide early this a.m. at the hospital. With his progressive deterioration at home EMS was notified and upon their presentation the patient was noted to have a blood pressure systolic blood pressure in the 60s. The patient received several liters of IV fluid and enroute to the hospital he also received atropine per report. Upon admission to the ED the patient continued to have a low blood pressure received several more liters of fluid and the patient labs and imaging studies were performed. The patient was noted to have a metabolic acidosis. CT of the abdomen and pelvis with contrast and aortic runoff currently is pending. Patient's hemoglobin was noted to be 8.8, a type and screen was performed and 2 units of packed cells were ordered. Discussion with the ED physician, vascular surgery was consulted awaiting evaluation/recommendations. All history obtained was by family, according to their report the patient was worked up for surgery his ejection fraction was 75%, the patient has had chronic nausea and vomiting and was on omeprazole at home. With the recent diagnosis adenocarcinoma of the lung per report bilateral lower lobes the patient has requested CODE STATUS of DNR which was reiterated in the ED by himself as well as his family members. Patient was scheduled for radiation therapy in April 2018. critical care medicine has been consulted. 03/16: Patient is lying in bed slightly tremulous. Hemodynamically more stable. CTA w run off: Complete occlusion of the left superficial femoral artery and left common iliac artery. The fem-fem graft appears patent. High-grade stenosis involving the right SFA, bilateral popliteal arteries with diminutive 2 vessel runoff to left ankle and single vessel runoff to right ankle. Vascular surgery consult appreciated no further intervention can be offered at this time. It was also noted that patient refused blood transfusion and refusing labs Objective Vital Signs / I&O: Vital Signs 03/15/18 15:20 03/15/18 15:30 03/15/18 15:35 Temperature 97.7 F Pulse Rate 101 H 91 H Respiratory Rate 19 20 Blood Pressure 138/68 151/63 H Pulse Oximetry 98 97 98 03/15/18 16:01 03/15/18 16:17 03/15/18 16:44 Temperature Pulse Rate Respiratory Rate Blood Pressure 98/50 L 104/49 L 125/61 Pulse Oximetry 03/15/18 16:56 03/15/18 17:21 03/15/18 17:46 Temperature Pulse Rate 72 Respiratory Rate 15 Blood Pressure 132/59 L 126/63 Pulse Oximetry 98 95 03/15/18 18:21 03/15/18 19:50 03/15/18 20:00 Temperature Pulse Rate 72 18 L Respiratory Rate 19 18 Blood Pressure 153/67 H 132/78 Pulse Oximetry 99 99 98 03/15/18 20:56 03/15/18 21:00 03/15/18 22:00 Temperature 98.1 F 98.1 F Pulse Rate 88 88 85 Respiratory Rate 24 24 18 Blood Pressure 148/71 H 147/70 H 155/71 H Pulse Oximetry 100 100 99 03/15/18 23:00 03/16/18 00:00 03/16/18 01:00 Temperature Pulse Rate 98 H 94 H 98 H Respiratory Rate 24 23 26 H Blood Pressure 165/78 H 145/69 H 153/68 H Pulse Oximetry 95 96 94 L 03/16/18 02:00 03/16/18 02:01 03/16/18 02:03 Temperature 98.1 F Pulse Rate 90 90 89 Respiratory Rate 24 23 26 H Blood Pressure 87/42 L 103/54 L Pulse Oximetry 91 L 92 L 93 L 03/16/18 03:00 03/16/18 04:00 03/16/18 05:00 Temperature 97.8 F 97.6 F 98.1 F Pulse Rate 82 93 H 94 H Respiratory Rate 20 21 21 Blood Pressure 113/55 L 125/57 L 110/54 L Pulse Oximetry 94 L 92 L 90 L 03/16/18 06:00 Temperature 98.1 F Pulse Rate 101 H Respiratory Rate 27 H Blood Pressure 111/56 L Pulse Oximetry 98 Intake & Output 03/15/18 03/16/18 03/16/18 18:59 06:59 18:59 Intake Total 1500 / 1500 480 / 480 Output Total 300 / 300 Balance 1500 / 1500 180 / 180 Weight 77.564 kg 75 kg Intake: IV 1500 / 1500 240 / 240 NS Inj 1,000 ML @ 84 mls/hr IV. 240 / 240 CONT .[id number] JAHAIRA Rx#:[id number] NS Inj 1,000 ML @ Wide Open IV. 1000 / 1000 SIG BOLUS ONE Rx#:[id number] NS Inj 500 ML @ 1000 mls/hr IV. 500 / 500 SIG BOLUS JAHAIRA Rx#:[id number] Oral 240 / 240 Output: Urine 300 / 300 Other: Date of Last Bowel Movement 03/16/18 # Bowel Movements 1 Weight On Admission 75 kg Result Diagrams: 03/15/18 15:26 03/15/18 15:26 Objective Remarks: - Constitutional mild distress, chronically ill appearing, somnolent slightly tremulous - Routine HEENT Exam Head: Present: normocephalic Eye: Present: EOMI, PERRL, normal accommodation ENT: Present: mucous membranes moist - Routine Neck Exam Present: supple, full ROM - Routine Cardiovascular Exam Present: RRR, S1, S2. No obvious murmurs - Routine Abdominal Exam Present: soft, normoactive bowel sounds, surgical scars (Right groin with ecchymotic bruising Dermabond noted) - Routine Extremities Exam Present: normal capillary refill (Left lower extremity, sluggish capillary refill right lower extremity,), extremity cold to touch (Right). Bilateral DP pulses felt by Doppler - Routine Skin Exam Present: petechiae, ecchymosis - Routine Neurological Exam Present: alert, oriented, CN II-XII intact, moving all extremities, normal tone. Patient is slightly tremulous Assessment and Plan - Assessment and Plan Plan: Assessment This is a 72-year-old male postop day 3 status post right to left femoral bypass at [facility], now presenting with hypotension diaphoresis , nausea and vomiting. Patient's medical history significant for adenocarcinoma of the lung recently diagnosed and multiple comorbidities to include GERD, COPD chronic, coronary artery disease, hypertension, EtOH abuse. The patient is critically ill, but now stabilizing after fluid resuscitation Plan by systems: Neurologic: EtOH abuse/early withdrawal Neuro checks per ICU Librium 5 mg every 8 hours as needed Ativan IV as needed for seizures and agitation Seizure precautions Monitor for signs alcohol withdrawal Supplement multivitamin thiamine Respiratory: COPD Tobacco abuse O2 via nasal cannula 2 L/min Maintain O2 saturation greater than 92% Nicotine patchmedium dose daily Cardiovascular: Coronary artery disease Hypotension Currently normotensive-close monitoring of hourly vital signs needed Serial troponin levels lactate levels every 6 hours-patient refusing blood work though Vascular surgery consult appreciated. No further interventions can be offered at this time continue fluid resuscitation Patient refused blood transfusion Renal: Monitor BMP Replete electrolytes per ICU protocol -- Strict I/Os FEN/GI: Metabolic acidosis Nausea/Vomiting-resolved Zofran for nausea Protonix twice daily CT of the abdomen and pelvis, and aortic runoff as noted above Clear liquid diet as tolerated advance as tolerated Heme/ID: Anemia Monitor serial hemoglobin and hematocrit. Possible acute blood loss in the Type and screen 2 units packed red blood cells placed on hold as the patient refused transfusion Endocrine: Glucose monitoring per ICU protocol -- SSI Prophylaxis: GI Prophylaxis DVT Prophylaxis -- SCDs Holding pharmacological DVT prophylaxis for now concern for possible bleeding. I am not able to check the hemoglobin as the patient refuses blood work. We will continue to hold chemical DVT prophylaxis Lines: Peripheral IVs providing adequate access at this time. Central line if indicated Dispo: My billing statement Level 2 Consult hospitalist to assume care in a.m., consult palliative care, transferred to stepdown with telemetry
[2018-03-16] MEDS: Acetaminophen 325 MG Tablet PO PRN (09:48)
[2018-03-16] MEDS: Senna/Docusate Sodium 8.6/50 MG Tablet PO SCH ×2 (09:51→20:57)
[2018-03-16] MEDS: Multivitamin Inj 10 ML, Thiamine Inj 100 MG, Folic Acid Inj 1 MG in Sodium Chlor 0.9% I... IV.SIG SCH (09:51)
--- NOTE | 2018-03-16 12:21 | P.PNVS ---
Subjective Subjective/Hospital Course: Referral received, patient seen and examined Full consult dictated Thanks Marcelle 03/16/2018 This 72-year-old patient underwent, 2 days ago, a femoral-femoral bypass at [facility] for severe ischemia of the left leg. The patient did well and apparently was discharged from the hospital the next day. According to his daughter, the patient suddenly started staring in the distance and became sort of catatonic appearing; the cause right now is being worked up. The patient underwent CTA of abdomen with a runoff and question arises if there are any vascular issues that need to be addressed. In addition patient has metastatic lung cancer for which he is allegedly scheduled to have some radiation at the [facility]. Groins are normal. The patient does not have bowel obstruction. He has some bruising over the suprapubic area where the femoral-femoral bypass was performed 2 days ago, and this is expected. Some swelling in both groins. Incisions are dry. The graft is clearly patent. Pulses are dopplerable in both groins. The patient has no dopplerable popliteal pulses and I do not perceive dopplerable dorsalis pedis or posterior tibial pulses. Feet are actually slightly pale, but warm. 1. As far as vascular surgery is concerned, this patient has occlusion of the left common iliac artery and external iliac artery, so his left leg was severely ischemic. Femoral-femoral was done to bring some blood to the left leg, which was done successfully. Unfortunately, distal to that, the patient has virtual occlusion of both superficial femoral arteries and both popliteal arteries with very diminutive flow toward the feet. The deep femoral arteries were patent bilaterally, so this is basically supplying the legs. From vascular standpoint, there is nothing else to do here. In this particular situation, popliteals are occluded, superficial femoral arteries are occluded, diminutive flow to the foot is a flow-limiting disease as well and there is nothing else we can do here. Femoral-femoral bypass was the best choice. I discussed the care with the family and patient is DNR, does not want to be intubated does not want any other studies done, bloods drawn or any other further workup Critical care 32 minutes we will sign off from vascular point, reconsult if necessary Objective Vital Signs / I&O: Vital Signs 03/15/18 15:20 03/15/18 15:30 03/15/18 15:35 Temperature 97.7 F Pulse Rate 101 H 91 H Respiratory Rate 19 20 Blood Pressure 138/68 151/63 H Pulse Oximetry 98 97 98 03/15/18 16:01 03/15/18 16:17 03/15/18 16:44 Temperature Pulse Rate Respiratory Rate Blood Pressure 98/50 L 104/49 L 125/61 Pulse Oximetry 03/15/18 16:56 03/15/18 17:21 03/15/18 17:46 Temperature Pulse Rate 72 Respiratory Rate 15 Blood Pressure 132/59 L 126/63 Pulse Oximetry 98 95 03/15/18 18:21 03/15/18 19:50 03/15/18 20:00 Temperature Pulse Rate 72 18 L Respiratory Rate 19 18 Blood Pressure 153/67 H 132/78 Pulse Oximetry 99 99 98 03/15/18 20:56 03/15/18 21:00 03/15/18 22:00 Temperature 98.1 F 98.1 F Pulse Rate 88 88 85 Respiratory Rate 24 24 18 Blood Pressure 148/71 H 147/70 H 155/71 H Pulse Oximetry 100 100 99 03/15/18 23:00 03/16/18 00:00 03/16/18 01:00 Temperature Pulse Rate 98 H 94 H 98 H Respiratory Rate 24 23 26 H Blood Pressure 165/78 H 145/69 H 153/68 H Pulse Oximetry 95 96 94 L 03/16/18 02:00 03/16/18 02:01 03/16/18 02:03 Temperature 98.1 F Pulse Rate 90 90 89 Respiratory Rate 24 23 26 H Blood Pressure 87/42 L 103/54 L Pulse Oximetry 91 L 92 L 93 L 03/16/18 03:00 03/16/18 04:00 03/16/18 05:00 Temperature 97.8 F 97.6 F 98.1 F Pulse Rate 82 93 H 94 H Respiratory Rate 20 21 21 Blood Pressure 113/55 L 125/57 L 110/54 L Pulse Oximetry 94 L 92 L 90 L 03/16/18 06:00 03/16/18 07:00 03/16/18 08:00 Temperature 98.1 F 102.8 F H Pulse Rate 101 H 90 94 H Respiratory Rate 27 H 22 26 H Blood Pressure 111/56 L 110/59 L 125/56 L Pulse Oximetry 98 100 100 03/16/18 08:30 03/16/18 09:00 03/16/18 09:01 Temperature Pulse Rate 101 H 103 H Respiratory Rate 31 H 29 H Blood Pressure 115/80 Pulse Oximetry 100 96 95 03/16/18 10:00 Temperature Pulse Rate 99 H Respiratory Rate 26 H Blood Pressure 121/56 L Pulse Oximetry 100 Intake & Output 03/15/18 03/16/18 03/16/18 18:59 06:59 18:59 Intake Total 1500 / 1500 480 / 480 Output Total 300 / 300 Balance 1500 / 1500 180 / 180 Weight 77.564 kg 75 kg Intake: IV 1500 / 1500 240 / 240 NS Inj 1,000 ML @ 84 mls/hr IV. 240 / 240 CONT .[id number] JAHAIRA Rx#:[id number] NS Inj 1,000 ML @ Wide Open IV. 1000 / 1000 SIG BOLUS ONE Rx#:[id number] NS Inj 500 ML @ 1000 mls/hr IV. 500 / 500 SIG BOLUS JAHAIRA Rx#:[id number] Oral 240 / 240 Output: Urine 300 / 300 Other: Date of Last Bowel Movement 03/16/18 03/16/18 # Bowel Movements 1 Weight On Admission 75 kg Laboratory Results - last 24 hr 03/15/18 03/15/18 03/15/18 15:26 15:26 15:26 WBC 9.3 RBC 2.36 L Hgb 8.8 L Hct 26.1 L MCV 110.7 H MCH 37.5 H MCHC 33.9 RDW 16.0 Plt Count 130 L MPV 7.5 Neut % (Auto) 61.5 Lymph % (Auto) 27.8 [place] % (Auto) 9.3 H Eos % (Auto) 1.2 Baso % (Auto) 0.2 Neut # (Auto) 5.7 Lymph # (Auto) 2.6 [place] # (Auto) 0.9 Eos # (Auto) 0.1 Baso # (Auto) 0.0 WBC Differential . Differential Comment Auto diff final Puncture Site Patient Temperature O2 Saturation ABG pH ABG pCO2 ABG pO2 ABG HCO3 ABG O2 Content ABG Base Excess ABG Methemoglobin [place] Test Hemoglobin Carboxyhemoglobin O2 Delivery Device Critical Value Sodium 136 Potassium 3.6 Chloride 105 Carbon Dioxide 20.7 L Anion Gap 10 BUN 12 Creatinine 0.96 Estimated GFR 77 L POC Glucose Random Glucose 143 H Lactic Acid Calcium 7.0 L* Calcium Adj for Albumin 8.4 L Magnesium Total Bilirubin 0.3 Direct Bilirubin Indirect Bilirubin AST 23 ALT 20 Alkaline Phosphatase 72 Ammonia Troponin I Less than 0.02 L Total Protein 5.1 L Albumin 2.2 L Nasal Screen MRSA (PCR) Serum Alcohol 9 H Cancelled Blood Type Blood Type Recheck Antibody Screen MTS Gel Crossmatch 03/15/18 03/15/18 03/15/18 15:26 15:35 17:35 WBC RBC Hgb Hct MCV MCH MCHC RDW Plt Count MPV Neut % (Auto) Lymph % (Auto) [place] % (Auto) Eos % (Auto) Baso % (Auto) Neut # (Auto) Lymph # (Auto) [place] # (Auto) Eos # (Auto) Baso # (Auto) WBC Differential Differential Comment Puncture Site Left radial Left brachial Patient Temperature 98.6 98.6 O2 Saturation 95 88 L* ABG pH 7.34 L 7.40 ABG pCO2 31 L 34 L ABG pO2 89 62 ABG HCO3 16 L* 21 L ABG O2 Content 11.2 L 11.6 L ABG Base Excess -8.5 L -3.3 L ABG Methemoglobin 0.4 0.6 [place] Test Y Y Hemoglobin 8.3 L 9.3 L Carboxyhemoglobin 1.5 1.6 O2 Delivery Device Ra Ra Critical Value Yes Yes Sodium Potassium Chloride Carbon Dioxide Anion Gap BUN Creatinine Estimated GFR POC Glucose Random Glucose Lactic Acid Calcium Calcium Adj for Albumin Magnesium 1.7 Total Bilirubin Direct Bilirubin Indirect Bilirubin AST ALT Alkaline Phosphatase Ammonia Troponin I Total Protein Albumin Nasal Screen MRSA (PCR) Serum Alcohol Blood Type Blood Type Recheck Antibody Screen MTS Gel Crossmatch 03/15/18 03/15/18 03/15/18 17:40 17:41 21:02 WBC RBC Hgb Hct MCV MCH MCHC RDW Plt Count MPV Neut % (Auto) Lymph % (Auto) [place] % (Auto) Eos % (Auto) Baso % (Auto) Neut # (Auto) Lymph # (Auto) [place] # (Auto) Eos # (Auto) Baso # (Auto) WBC Differential Differential Comment Puncture Site Patient Temperature O2 Saturation ABG pH ABG pCO2 ABG pO2 ABG HCO3 ABG O2 Content ABG Base Excess ABG Methemoglobin [place] Test Hemoglobin Carboxyhemoglobin O2 Delivery Device Critical Value Sodium Potassium Chloride Carbon Dioxide Anion Gap BUN Creatinine Estimated GFR POC Glucose Random Glucose Lactic Acid Calcium Calcium Adj for Albumin Magnesium Total Bilirubin Direct Bilirubin Indirect Bilirubin AST ALT Alkaline Phosphatase Ammonia Less than 10 L Troponin I Total Protein Albumin Nasal Screen MRSA (PCR) Not detected Serum Alcohol Blood Type O Positive Blood Type Recheck Required Antibody Screen Negative MTS Gel Crossmatch See Detail 03/15/18 03/15/18 03/16/18 21:36 21:36 12:01 WBC RBC Hgb Hct MCV MCH MCHC RDW Plt Count MPV Neut % (Auto) Lymph % (Auto) [place] % (Auto) Eos % (Auto) Baso % (Auto) Neut # (Auto) Lymph # (Auto) [place] # (Auto) Eos # (Auto) Baso # (Auto) WBC Differential Differential Comment Puncture Site Patient Temperature O2 Saturation ABG pH ABG pCO2 ABG pO2 ABG HCO3 ABG O2 Content ABG Base Excess ABG Methemoglobin [place] Test Hemoglobin Carboxyhemoglobin O2 Delivery Device Critical Value Sodium Potassium Chloride Carbon Dioxide Anion Gap BUN Creatinine Estimated GFR POC Glucose 124 H Random Glucose Lactic Acid 1.0 Calcium Calcium Adj for Albumin Magnesium Total Bilirubin 0.4 Direct Bilirubin 0.1 Indirect Bilirubin 0.3 AST 32 ALT 23 Alkaline Phosphatase 86 Ammonia Troponin I Less than 0.02 L Total Protein 5.7 L D Albumin 2.4 L Nasal Screen MRSA (PCR) Serum Alcohol Blood Type Blood Type Recheck Antibody Screen MTS Gel Crossmatch Impressions Chest X-Ray 03/15/18 15:22 CONCLUSION: Right mid lateral masslike area could be a lung mass versus focal consolidation. Aorta w/Runoff CTA 03/15/18 15:24 CONCLUSION: 1. 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 2. The fem-fem graft appears patent. 3. High-grade stenosis involving the right SFA, bilateral popliteal arteries with diminutive 2 vessel runoff to left ankle and single vessel runoff to right ankle.
[2018-03-17 04:06] LABS: Baso # (Auto) 0.1 th/mm3 (0.0-0.2); Baso % (Auto) 0.5 % (0.0-2.0); Eos # (Auto) 0.1 th/mm3 (0.0-0.4); Hematocrit 25.7 % (39.0-51.0); Hemoglobin 9.1 gm/dL (13.0-17.0); Lymph # (Auto) 1.6 th/mm3 (1.0-4.8); Lymph % (Auto) 13.9 % (9.0-44.0); Mean Corpuscular HGB Conc 35.6 % (32.0-36.0); Mean Corpuscular Hemoglobin 38.3 pg (27.0-34.0); Mean Corpuscular Volume 107.6 fL (80.0-100.0); Mean Platelet Volume 7.2 fL (7.0-11.0); Neut # (Auto) 8.6 th/mm3 (1.8-7.7); Neut % (Auto) 75.6 % (16.0-70.0); Platelet Count 138 th/mm3 (150-450); Red Blood Count 2.39 mil/mm3 (4.50-5.90); Red Cell Distribution Width 15.9 % (11.6-17.2); White Blood Count 11.4 th/mm3 (4.0-11.0)
[2018-03-17 04:22] LABS: Prothrombin Time 10.6 sec (9.8-11.6)
[2018-03-17 04:41] LABS: Alanine Aminotransferase 16 U/L (12-78); Albumin 2.1 g/dL (3.4-5.0); Alkaline Phosphatase 82 U/L (45-117); Anion Gap 6 meq/L (5-15); Aspartate Aminotransferase 20 U/L (15-37); Blood Urea Nitrogen 9 mg/dL (7-18); Calcium 7.4 mg/dL (8.5-10.1); Carbon Dioxide 24.2 meq/L (21.0-32.0); Chloride 107 meq/L (98-107); Glomerular Filtration Rate Greater Than 89 mL/min (>89); Glucose,Random 88 mg/dL (74-106); Magnesium 1.5 mg/dL (1.5-2.5); Phosphorus 1.7 mg/dL (2.5-4.9); Potassium 3.5 meq/L (3.5-5.1); Sodium 137 meq/L (136-145); Total Protein 5.6 g/dL (6.4-8.2)
[2018-03-17] MEDS: Pantoprazole Inj 40 MG Vial IV.PUSH SCH ×2 (05:12→19:13)
[2018-03-17 05:18] LABS: Platelet Estimate Normal (Normal); Platelet Morphology Normal (Normal); Spherocytes 1+
[2018-03-17] MEDS: Chlorhexidine Gluconate 2% 1 Pack (2 Cloths) TOPICAL SCH (07:23)
[2018-03-17] MEDS: Multivitamin Inj 10 ML, Thiamine Inj 100 MG, Folic Acid Inj 1 MG in Sodium Chlor 0.9% I... IV.SIG SCH (10:02)
[2018-03-17] MEDS: Senna/Docusate Sodium 8.6/50 MG Tablet PO SCH ×2 (10:03→21:18)
[2018-03-17] MEDS: Sod Chloride 0.9% Inj 1,000 ML IV.CONT SCH ×2 (10:28→18:52)
--- NOTE | 2018-03-17 12:11 | XR ---
EXAM DATE: 03/17/2018 12:06 PM EST AGE/SEX: 72 years / Male INDICATIONS: . Fever. CLINICAL DATA: This is the patient's initial encounter. Patient reports that signs and symptoms have been present for 2 days and indicates a pain score of 0/10. MEDICAL/SURGICAL HISTORY: Hypertension. Gastroesophageal reflux disease. CAD . femoral bypass COMPARISON: [facility], CHEST 1V SINGLE AP, 03/15/2018. . FINDINGS: Nodular opacity is again seen laterally in the right lung that could be fluid trapped in the fissure. Vascularity is resumed a more normal appearance. The heart and pulmonary vascularity are normal. The portion of the bony skeleton visualized is unremarkable. CONCLUSION: Interval improvement less interstitial edema. Electronically signed by: Ousmane Kendrick MD Board Certified Radiologist 03/17/2018 12:10 PM EST
--- NOTE | 2018-03-17 13:45 | P.CONPAL ---
Consult Service: Palliative Care Requesting Physician: Edyta Aldana Reason for Consult: a. To assist with evaluation and management of symptoms including:pain, dyspnea b. To assist medical decision maker(s) with: better understanding of current medical conditions; weighing benefits/burdens of medical treatment options; making medical treatment decisions. Primary Care Provider: UNKNOWN History of Present Illness History of Present Illness: This is a 72-year-old male who presented to the ED on 03/15/18 for abdominal pain, dizziness, nausea, and just general malaise. At time of presentation, patient had recently underwent femoral bypass 2 days prior for severe PVD at the [facility] in [place]. He was also recently diagnosed with adenocarcinoma of the lung for which he was being evaluated and worked up when he was found to have severe peripheral vascular disease. He also has a history of COPD and long history of smoking,as well as long history of ETOH. He reportedly quit drinking beer (8-10/day) but continued to drink a gallon of vodka every three days. Patient underwent surgery with epidural anesthesia to avoid complications. He was discharged to his family and transported back to [place]. About an hour after returning home, patient became agitated, diaphoretic and tumorous, family assumed it was secondary to alcohol withdrawal and gave him vodka to drink, however this did not relieve his symptoms and he continued to have nausea vomiting diaphoresis. Upon arrival of EMS, patient was found to have a systolic blood pressure in the 60s and received several liters of fluid and route to the hospital as well as atropine. Family did report patient has chronic history of nausea and vomiting and was on omeprazole for this at home. While in the ED, patient and his family elected DNR status due to recently diagnosed lung adenocarcinoma in bilateral lower lobes. Patient was admitted to the ICU, vascular surgery was consulted. Per vascular surgery, patient underwent femoral-femoral bypass to reperfuse the left leg however distal to that there is occlusion of both superficial femoral arteries and both popliteal arteries with very diminished flow towards the feet. No further interventions were offered. At this time, patient is now refusing any further labs, has refused recommended blood transfusion, * CTA with runoff:Complete occlusion of the left superficial femoral artery and left common iliac artery. The fem-fem graft appears patent. High-grade stenosis involving the right SFA, bilateral popliteal arteries with diminutive 2 vessel runoff to left ankle and single vessel runoff to right ankle. * Labs 03/17/18: WBC 11.4, hemoglobin 9.1, adequate 25.7, platelets 138, PT/INR 10.6/1.0, sodium 137, potassium 3.5, chloride 107, carbon dioxide 24.2, BUN/ creatinine 9/0.55, GFR greater than 89, glucose 88, lactic acid 0.8, calcium 7.4 , phosphorus 1.7, mag 1.5, bilirubin 0.4, AST/ALT 20/16, alkaline phosphatase 82 , troponin less than 0.02, albumin 2.1 Met with patient's 2 daughters outside the room, they state "we needed you a few days ago, we have got it now." They report they are working with case management to get patient back to [facility] in [place] and then possibly to palliative care after that. Explored what is in [place], and what type of palliative care in an attempt to see if we could be us of assistance locally as the patient lives here. Daughters report plan is for him to go to detox to finish withdrawing from alcohol then transition to comfort care. Daughters are somewhat irritable with my visit. Stating "we've have already told the story 15 times." Attempted to explore current symptoms, if any, that could be addressed while awaiting transfer back to [place], they report he is comfortable at this time. Unable to complete full assessment due to daughters limiting my visit. Function/Cognitive Trajectory: Patient has a long history of alcohol use and smoking. Prior to this hospitalization, he was recently adenocarcinoma of the lung for which she was planning to start radiation in April. Functional level is unknown at this time, as patient is confused and daughters declined to discuss, they only report "he's not a young 72, he's a hard 72." Review of Systems All other systems reviewed negative except as stated in HPI, unobtainable due to mental status, other (daughters declined to discuss) Constitutional: Reports fatigue, Reports malaise Neurologic: Reports behavioral changes, Reports confusion PMFSH - History History Provided By: 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, Medical Record - Medical History Medical History: Medical History (Last Reviewed 03/17/18 @ 13:50 by JAQUELIN Mejia) Adenocarcinoma CAD (coronary artery disease) GERD (gastroesophageal reflux disease) HTN (hypertension) - Surgical History Surgical History: Surgical History (Last Reviewed 03/17/18 @ 13:50 by JAQUELIN Mejia) S/P femoral-femoral bypass surgery - Tobacco History Second Hand Smoke Exposure: Yes Tobacco Use In Past 30 Days: Yes Smoking Status: Current every day smoker Tobacco Type: Cigarettes Packs Per Day: 2 years: 55 - Alcohol History How Often Do You Have a Drink Containing Alcohol: 4 or more times a week - Substance Use History Substance History: No History of Abuse - Travel History Recent Travel in the [place] Within the Last 8 Weeks: No Recent Travel Out of the Country Within the Last 8 Weeks: No - Immunization History Tetanus Immunization: Unsure Medications and Allergies Active Medications: Active Medications Acetaminophen (Tylenol) 650 mg PO Q6H PRN PRN Reason: PAIN 1-10 AND/OR FEVER >101F Last Admin: 03/16/18 09:48 Dose: 650 mg Al Hydroxide/Mg Hydroxide (Milk Of Magnledy Liq) 30 ml PO Q12H PRN PRN Reason: Mild Constipation Albuterol (Duoneb Neb (Prn)) 1 ampul NEB Q2HR NEB PRN PRN Reason: WHEEZING Aspirin (Ecotrin) 81 mg PO DAILY [facility] Last Admin: 03/17/18 10:03 Dose: 81 mg Atorvastatin Calcium (Lipitor) 40 mg PO HS JAHAIRA Bisacodyl (Dulcolax Supp) 10 mg RECTAL DAILY PRN PRN Reason: SEVERE CONSITIPATION Chlordiazepoxide (Librium) 5 mg PO Q8H PRN PRN Reason: AGITATION AND/OR HALLUCINATION Last Admin: 03/17/18 11:24 Dose: 5 mg Chlorhexidine Gluconate (Chlorhexidine 2% Cloth) 3 pack TOPICAL DAILY@0400 [facility] Stop: 03/21/18 03:59 Last Admin: 03/17/18 07:23 Dose: Not Given Chlorhexidine Gluconate (Chlorhexidine 2% Cloth) 3 pack TOPICAL DAILY@0400 PRN PRN Reason: Extra cloth needed Stop: 03/21/18 03:59 Enoxaparin Sodium (Lovenox Inj) 30 mg SQ DAILY [facility] Magnesium Sulfate 4 gm/ Sodium (Chloride) 100 mls @ 50 mls/hr IV.SIG UNSCH PRN PRN Reason: For Magnesium 0.9 - 1.1 mg/dL Sodium Chloride (Ns Inj) 1,000 mls @ 84 mls/hr IV.CONT .[id number] [facility] Last Admin: 03/17/18 10:28 Dose: 84 mls/hr Potassium Chloride (Kcl 40 Meq Premix Inj) 40 meq in 100 mls @ 25 mls/hr IV.SIG Q2H PRN PRN Reason: For Potassium 2.8 - 3.2 mEq/L Potassium Chloride (Kcl 20 Meq Premix Inj) 20 meq in 100 mls @ 50 mls/hr IV.SIG Q2H PRN PRN Reason: For Potassium 3.3 - 3.5 mEq/L Potassium Chloride (Kcl 40 Meq Premix Inj) 40 meq in 100 mls @ 25 mls/hr IV.SIG UNSCH PRN PRN Reason: For Potassium 3.3 - 3.5 mEq/L Potassium Chloride (Kcl 20 Meq Premix Inj) 20 meq in 100 mls @ 50 mls/hr IV.SIG Q2H PRN PRN Reason: For Potassium 2.8 - 3.2 mEq/L Potassium Phosphate 30 mmol/ (Sodium Chloride) 260 mls @ 42 mls/hr IV.SIG UNSCH PRN PRN Reason: SEE LABEL COMMENTS Sodium Phosphate 30 mmol/ (Sodium Chloride) 260 mls @ 42 mls/hr IV.SIG UNSCH PRN PRN Reason: For Phosphorus < 2.5 mg/dL Magnesium Sulfate 2 gm/ Sodium (Chloride) 100 mls @ 50 mls/hr IV.SIG UNSCH PRN PRN Reason: For Magnesium 1.2 - 1.6 mg/dL Multivitamins 10 ml/ Thiamine HCl 100 mg/ Folic Acid 1 mg/Sodium Chloride 511.2 mls @ 125 mls/hr IV.SIG Q24H [facility] Stop: 03/18/18 13:06 Last Admin: 03/17/18 10:02 Dose: 125 mls/hr Lactulose (Lactulose Liq) 30 ml PO DAILY PRN PRN Reason: SEVERE CONSITIPATION Lorazepam (Ativan Inj) 1 mg IV.PUSH Q2H PRN PRN Reason: Seizures, agitation Last Admin: 03/17/18 05:12 Dose: 1 mg Magnesium Oxide (Mag-Ox) 800 mg PO UNSCH PRN PRN Reason: For Magnesium 1.2 - 1.6 mg/dL Morphine Sulfate (Morphine Inj) 2 mg IV.PUSH Q4H PRN PRN Reason: AGITATION / PAIN < 5 Last Admin: 03/16/18 01:14 Dose: 2 mg Nicotine (Habitrol 14 Mg Patch.24 Hr) 1 patch T-DERMAL DAILY [facility] Last Admin: 03/17/18 10:05 Dose: 1 patch Ondansetron HCl (Zofran Inj) 4 mg IV.PUSH Q6H PRN PRN Reason: NAUSEA OR VOMITING Pantoprazole Sodium (Protonix Inj) 40 mg IV.PUSH Q12H [facility] Last Admin: 03/17/18 05:12 Dose: 40 mg Patch Removal (Remove Old Patch) 1 each T-DERMAL HS [facility] Last Admin: 03/16/18 22:00 Dose: 1 each Potassium Bicarb/Potassium Chloride (K-Lyte Cl Eff) 50 meq PO UNSCH PRN PRN Reason: For Potassium 3.3 - 3.5 mEq/L Potassium Phosphate (K-Phos Original) 2,000 mg PO Q4H PRN PRN Reason: Phosphorus Less Than 2.5 mg/dL Potassium Phosphate (K-Phos Original) 2,000 mg PO UNSCH PRN PRN Reason: SEE LABEL COMMENTS Senna/Docusate Sodium (Fatoumata-Colace) 1 tab PO BID [facility] Last Admin: 03/17/18 10:03 Dose: 1 tab Sennosides (Senokot) 17.2 mg PO Q12H PRN PRN Reason: Moderate Constipation Sodium Chloride (Ns Flush) 2 ml IV.FLUSH BID [facility] Last Admin: 03/17/18 10:05 Dose: 2 ml Sodium Chloride (Ns Flush) 2 ml IV.FLUSH PRN PRN PRN Reason: FLUSH AFTER USING IV ACCESS Allergies Allergy/AdvReac Type Severity Reaction Status Date / Time No Known Allergies Allergy Verified 03/15/18 15:20 Home Medications Medication Instructions Recorded Confirmed Type codeine sulfate 30 mg PO Q4-6H PRN 03/15/18 03/15/18 History hydrochlorothiazide 25 mg PO DAILY 03/15/18 03/15/18 History lisinopril 40 mg PO DAILY 03/15/18 03/15/18 History nicotine 1 patch TRANSDERMAL DAILY 03/15/18 03/15/18 History omeprazole 20 mg PO DAILY 03/15/18 03/15/18 History Physical Exam Vital Signs: Vital Signs - 24 hr 03/16/18 16:00 03/16/18 20:00 03/16/18 20:05 Temperature 97.7 F 99.1 F Pulse Rate 100 H 95 H Respiratory Rate 20 20 Blood Pressure 165/75 H 131/60 Pulse Oximetry 100 95 95 03/17/18 00:00 03/17/18 04:00 03/17/18 08:00 Temperature Pulse Rate 103 H 95 H 108 H Respiratory Rate 18 19 Blood Pressure 122/57 L 135/62 Pulse Oximetry 95 95 03/17/18 09:00 03/17/18 10:00 03/17/18 10:26 Temperature Pulse Rate 102 H 84 Respiratory Rate Blood Pressure Pulse Oximetry 97 03/17/18 11:00 03/17/18 12:00 Temperature 98.4 F Pulse Rate 82 85 Respiratory Rate 16 Blood Pressure 160/74 H Pulse Oximetry I&O: Intake & Output 03/15/18 03/16/18 03/17/18 03/18/18 06:59 06:59 06:59 06:59 Intake Total 2980 / 2980 951.2 / 951.2 Output Total 300 / 300 450 / 450 Balance 2680 / 2680 501.2 / 501.2 Weight 75 kg Physical Exam: Daughter declined physical assessment CONSTITUTIONAL/GENERAL: This is an adequately nourished patient, in no apparent distress. NEUROLOGICAL: Awake and alert. Confused PSYCHIATRIC: No obvious anxiety/depression. no apparent hallucinations or other psychotic thought process. Diagnostic Tests Laboratory: Laboratory Results - last 72 hr 03/15/18 03/15/18 03/15/18 15:26 15:26 15:26 WBC 9.3 RBC 2.36 L Hgb 8.8 L Hct 26.1 L MCV 110.7 H MCH 37.5 H MCHC 33.9 RDW 16.0 Plt Count 130 L MPV 7.5 Prelim Diff (Auto) Neut % (Auto) 61.5 Lymph % (Auto) 27.8 Woodson % (Auto) 9.3 H Eos % (Auto) 1.2 Baso % (Auto) 0.2 Neut # (Auto) 5.7 Lymph # (Auto) 2.6 Woodson # (Auto) 0.9 Eos # (Auto) 0.1 Baso # (Auto) 0.0 WBC Differential . Diff Scan Differential Comment Auto diff final Platelet Estimate Platelet Morphology Spherocytes PT INR Puncture Site Patient Temperature O2 Saturation ABG pH ABG pCO2 ABG pO2 ABG HCO3 ABG O2 Content ABG Base Excess ABG Methemoglobin Chapito Test Hemoglobin Carboxyhemoglobin O2 Delivery Device Critical Value Sodium 136 Potassium 3.6 Chloride 105 Carbon Dioxide 20.7 L Anion Gap 10 BUN 12 Creatinine 0.96 Estimated GFR 77 L POC Glucose Random Glucose 143 H Lactic Acid Calcium 7.0 L* Calcium Adj for Albumin 8.4 L Phosphorus Magnesium Total Bilirubin 0.3 Direct Bilirubin Indirect Bilirubin AST 23 ALT 20 Alkaline Phosphatase 72 Ammonia Troponin I Less than 0.02 L Total Protein 5.1 L Albumin 2.2 L Nasal Screen MRSA (PCR) Serum Alcohol 9 H Cancelled Blood Type Blood Type Recheck Antibody Screen MTS Gel Crossmatch 03/15/18 03/15/18 03/15/18 15:26 15:35 17:35 WBC RBC Hgb Hct MCV MCH MCHC RDW Plt Count MPV Prelim Diff (Auto) Neut % (Auto) Lymph % (Auto) Woodson % (Auto) Eos % (Auto) Baso % (Auto) Neut # (Auto) Lymph # (Auto) Woodson # (Auto) Eos # (Auto) Baso # (Auto) WBC Differential Diff Scan Differential Comment Platelet Estimate Platelet Morphology Spherocytes PT INR Puncture Site Left radial Left brachial Patient Temperature 98.6 98.6 O2 Saturation 95 88 L* ABG pH 7.34 L 7.40 ABG pCO2 31 L 34 L ABG pO2 89 62 ABG HCO3 16 L* 21 L ABG O2 Content 11.2 L 11.6 L ABG Base Excess -8.5 L -3.3 L ABG Methemoglobin 0.4 0.6 Chapito Test Y Y Hemoglobin 8.3 L 9.3 L Carboxyhemoglobin 1.5 1.6 O2 Delivery Device Ra Ra Critical Value Yes Yes Sodium Potassium Chloride Carbon Dioxide Anion Gap BUN Creatinine Estimated GFR POC Glucose Random Glucose Lactic Acid Calcium Calcium Adj for Albumin Phosphorus Magnesium 1.7 Total Bilirubin Direct Bilirubin Indirect Bilirubin AST ALT Alkaline Phosphatase Ammonia Troponin I Total Protein Albumin Nasal Screen MRSA (PCR) Serum Alcohol Blood Type Blood Type Recheck Antibody Screen MTS Gel Crossmatch 03/15/18 03/15/18 03/15/18 17:40 17:41 21:02 WBC RBC Hgb Hct MCV MCH MCHC RDW Plt Count MPV Prelim Diff (Auto) Neut % (Auto) Lymph % (Auto) Woodson % (Auto) Eos % (Auto) Baso % (Auto) Neut # (Auto) Lymph # (Auto) Woodson # (Auto) Eos # (Auto) Baso # (Auto) WBC Differential Diff Scan Differential Comment Platelet Estimate Platelet Morphology Spherocytes PT INR Puncture Site Patient Temperature O2 Saturation ABG pH ABG pCO2 ABG pO2 ABG HCO3 ABG O2 Content ABG Base Excess ABG Methemoglobin [place] Test Hemoglobin Carboxyhemoglobin O2 Delivery Device Critical Value Sodium Potassium Chloride Carbon Dioxide Anion Gap BUN Creatinine Estimated GFR POC Glucose Random Glucose Lactic Acid Calcium Calcium Adj for Albumin Phosphorus Magnesium Total Bilirubin Direct Bilirubin Indirect Bilirubin AST ALT Alkaline Phosphatase Ammonia Less than 10 L Troponin I Total Protein Albumin Nasal Screen MRSA (PCR) Not detected Serum Alcohol Blood Type O Positive Blood Type Recheck Required Antibody Screen Negative MTS Gel Crossmatch See Detail 03/15/18 03/15/18 03/16/18 21:36 21:36 12:01 WBC RBC Hgb Hct MCV MCH MCHC RDW Plt Count MPV Prelim Diff (Auto) Neut % (Auto) Lymph % (Auto) Woodson % (Auto) Eos % (Auto) Baso % (Auto) Neut # (Auto) Lymph # (Auto) Woodson # (Auto) Eos # (Auto) Baso # (Auto) WBC Differential Diff Scan Differential Comment Platelet Estimate Platelet Morphology Spherocytes PT INR Puncture Site Patient Temperature O2 Saturation ABG pH ABG pCO2 ABG pO2 ABG HCO3 ABG O2 Content ABG Base Excess ABG Methemoglobin [place] Test Hemoglobin Carboxyhemoglobin O2 Delivery Device Critical Value Sodium Potassium Chloride Carbon Dioxide Anion Gap BUN Creatinine Estimated GFR POC Glucose 124 H Random Glucose Lactic Acid 1.0 Calcium Calcium Adj for Albumin Phosphorus Magnesium Total Bilirubin 0.4 Direct Bilirubin 0.1 Indirect Bilirubin 0.3 AST 32 ALT 23 Alkaline Phosphatase 86 Ammonia Troponin I Less than 0.02 L Total Protein 5.7 L D Albumin 2.4 L Nasal Screen MRSA (PCR) Serum Alcohol Blood Type Blood Type Recheck Antibody Screen MTS Gel Crossmatch 03/17/18 03/17/18 03/17/18 03:56 03:56 03:56 WBC 11.4 H RBC 2.39 L Hgb 9.1 L Hct 25.7 L MCV 107.6 H MCH 38.3 H MCHC 35.6 RDW 15.9 Plt Count 138 L MPV 7.2 Prelim Diff (Auto) Slide review pending Neut % (Auto) 75.6 H Lymph % (Auto) 13.9 Woodson % (Auto) 9.0 H Eos % (Auto) 1.0 Baso % (Auto) 0.5 Neut # (Auto) 8.6 H Lymph # (Auto) 1.6 Woodson # (Auto) 1.0 H Eos # (Auto) 0.1 Baso # (Auto) 0.1 WBC Differential . Diff Scan Auto diff confirmed Differential Comment . Platelet Estimate Normal Platelet Morphology Normal Spherocytes 1+ H PT 10.6 INR 1.0 Puncture Site Patient Temperature O2 Saturation ABG pH ABG pCO2 ABG pO2 ABG HCO3 ABG O2 Content ABG Base Excess ABG Methemoglobin [place] Test Hemoglobin Carboxyhemoglobin O2 Delivery Device Critical Value Sodium 137 Potassium 3.5 Chloride 107 Carbon Dioxide 24.2 Anion Gap 6 BUN 9 Creatinine 0.55 L Estimated GFR Greater than 89 POC Glucose Random Glucose 88 Lactic Acid Calcium 7.4 L* Calcium Adj for Albumin 8.9 Phosphorus 1.7 L Magnesium 1.5 Total Bilirubin 0.4 Direct Bilirubin Indirect Bilirubin AST 20 ALT 16 Alkaline Phosphatase 82 Ammonia Troponin I Less than 0.02 L Total Protein 5.6 L Albumin 2.1 L Nasal Screen MRSA (PCR) Serum Alcohol Blood Type Blood Type Recheck Antibody Screen MTS Gel Crossmatch 03/17/18 03:56 WBC RBC Hgb Hct MCV MCH MCHC RDW Plt Count MPV Prelim Diff (Auto) Neut % (Auto) Lymph % (Auto) Woodson % (Auto) Eos % (Auto) Baso % (Auto) Neut # (Auto) Lymph # (Auto) Woodson # (Auto) Eos # (Auto) Baso # (Auto) WBC Differential Diff Scan Differential Comment Platelet Estimate Platelet Morphology Spherocytes PT INR Puncture Site Patient Temperature O2 Saturation ABG pH ABG pCO2 ABG pO2 ABG HCO3 ABG O2 Content ABG Base Excess ABG Methemoglobin Chapito Test Hemoglobin Carboxyhemoglobin O2 Delivery Device Critical Value Sodium Potassium Chloride Carbon Dioxide Anion Gap BUN Creatinine Estimated GFR POC Glucose Random Glucose Lactic Acid 0.8 Calcium Calcium Adj for Albumin Phosphorus Magnesium Total Bilirubin Direct Bilirubin Indirect Bilirubin AST ALT Alkaline Phosphatase Ammonia Troponin I Total Protein Albumin Nasal Screen MRSA (PCR) Serum Alcohol Blood Type Blood Type Recheck Antibody Screen MTS Gel Crossmatch Result Diagrams: 03/17/18 03:56 03/17/18 03:56 Imaging: Impressions Chest X-Ray 03/17/18 00:00 CONCLUSION: Interval improvement less interstitial edema. Patient/Family Conference Present at Family Conference: Patient's 2 daughters Family Conference Location: [facility] Issues Discussed: * Palliative care role, purpose, approach * Patient/family understanding of the current medical problems * Patient/family understanding of prognosis * Current medical treatment options and benefits/burdens of those options * Palliative care contact information provided * Family declined further conversation Assessment and Plan - Symptom Scale (1) Pain 0-10 Scale: Unable to quantify (2) Dyspnea 0-10 Scale: Unable to quantify (3) Acute delirium 0-10 Scale: Unable to quantify Pertinent Non-Medical Issues: Psychosocial: Patient was in the [employer]. He was living alone prior to this hospitalization. He has 2 daughters who do not live in the area. Spiritual: Flare Maker available Legal: No known living will or advanced directives Ethical issues impacting care: None Prognosis: Patient now refusing further workup including labs and blood transfusion. Given poor health status, risks for withdrawal and associated complications in combination with adenocarcinoma of the lung, life expectancy is limited. Code Status: No Code DNR Plan: Legal decision maker: Patient does not appear to be capacitated to make decisions at this time, it is unclear if he will regain capacity. Healthcare surrogate/proxy unknown at this time, daughters declined conversation to further explore. Goals: Daughter's report plans to return to [place] possibly today with hopes to detox from alcohol and possibly pursue radiation in the new year. CODE STATUS: DNR SYMPTOMS: --Pain: Daughter reports patient was having some pain prior to this hospitalization secondary to poor perfusion. Anticipatory pain now secondary to recent procedures, poor perfusion, and mobility. --Weakness: Secondary to anemia poor functional status. At risk for complications due to alcohol withdrawal in the coming days. Daughters report transitioning to detox center soon. --Confusion/delirium: At risk for worsening confusion/delirium secondary to alcohol withdrawal. Daughters plan to transition to detox center. Also at risk due to advanced age and hospitalizations. Has Librium and Ativan ordered for for withdrawal. Palliative care will continue to follow during hospital course as condition evolves, to assist patient/decision-maker with understanding of medical conditions, weighing benefits/burdens of treatment options, for clarification of goals of treatment. Additionally will assist with any symptoms of palliative concern Appreciation Thank you for the opportunity to participate in the care of Theo Gonzalez. Attestation Collaborating Comments: Dr. George Attestation: To help prompt me to consider important information that might be impacting today's encounter and assessment, information from prior notes written by myself or my colleagues may have been "brought forward" into today's note. My signature on this note, however, is an attestation that I personally performed the exam, history, and/or decision-making noted today, and, unless otherwise indicated, the interactions with patient, family, and staff as well as the review of records all occurred today. I also attest that the listed assessment and stated plan reflect my best clinical judgment today based on the combination of historical information, prior notes, and today's exam/ interactions. When time spent is documented, it refers only to time spent today by the signer, or if indicated, combined time spent today by collaborating physician/nurse practitioner.
[2018-03-17 15:36] LABS: Hemoglobin A1c 5.1 % (4.3-6.0)
[2018-03-17] MEDS: Enoxaparin Inj 30 MG/0.3 ML Syringe SQ SCH (15:50)
--- NOTE | 2018-03-17 16:13 | P.PN ---
Subjective Interval history: Nursing denies any acute changes overnight. Daughter is present the bedside. Patient denies having any chest pain or shortness of breath. Says he feels okay. Physical Exam Vital signs: Vital Signs 03/16/18 20:00 03/16/18 20:05 03/17/18 00:00 Temperature 99.1 F Pulse Rate 95 H 103 H Respiratory Rate 20 18 Blood Pressure 131/60 122/57 L Pulse Oximetry 95 95 95 03/17/18 04:00 03/17/18 08:00 03/17/18 09:00 Temperature Pulse Rate 95 H 108 H 102 H Respiratory Rate 19 Blood Pressure 135/62 Pulse Oximetry 95 03/17/18 10:00 03/17/18 10:26 03/17/18 11:00 Temperature Pulse Rate 84 82 Respiratory Rate Blood Pressure Pulse Oximetry 97 03/17/18 12:00 Temperature 98.4 F Pulse Rate 85 Respiratory Rate 16 Blood Pressure 160/74 H Pulse Oximetry Intake & Output 03/16/18 03/17/18 03/17/18 18:59 06:59 18:59 Intake Total 511.2 / 511.2 440 / 440 Output Total 450 / 450 Balance 511.2 / 511.2 -10 / -10 Intake: IV 511.2 / 511.2 MVI-12 Inj 10 ML Thiamine Inj 511.2 / 511.2 100 MG Folvite Inj 1 MG In NS Inj 500 ML @ 125 mls/hr IV.SIG Q24H JAHAIRA Rx#:[id number] Oral 440 / 440 Output: Urine 450 / 450 Other: # Voids 1 # Incontinent Voids 3 Date of Last Bowel Movement 03/16/18 03/16/18 Narrative: Patient is awake and alert, no acute distress, appears fatigued Clear lungs bilaterally, unlabored breathing Heart sounds regular rate and rhythm Bilateral inguinal incisions appear clean dry and intact with no exudate noted 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 Diff Scan Auto diff confirmed Differential Comment . Platelet Estimate Normal Platelet Morphology Normal Spherocytes 1+ H PT 10.6 INR 1.0 Sodium 137 Potassium 3.5 Chloride 107 Carbon Dioxide 24.2 Anion Gap 6 BUN 9 Creatinine 0.55 L Estimated GFR Greater than 89 Random Glucose 88 Lactic Acid Calcium 7.4 L* Calcium Adj for Albumin 8.9 Phosphorus 1.7 L Magnesium 1.5 Total Bilirubin 0.4 AST 20 ALT 16 Alkaline Phosphatase 82 Troponin I Less than 0.02 L Total Protein 5.6 L Albumin 2.1 L 03/17/18 03:56 WBC RBC Hgb Hct MCV MCH MCHC RDW Plt Count MPV Prelim Diff (Auto) Neut % (Auto) Lymph % (Auto) [place] % (Auto) Eos % (Auto) Baso % (Auto) Neut # (Auto) Lymph # (Auto) [place] # (Auto) Eos # (Auto) Baso # (Auto) WBC Differential Diff Scan Differential Comment Platelet Estimate Platelet Morphology Spherocytes PT INR Sodium Potassium Chloride Carbon Dioxide Anion Gap BUN Creatinine Estimated GFR Random Glucose Lactic Acid 0.8 Calcium Calcium Adj for Albumin Phosphorus Magnesium Total Bilirubin AST ALT Alkaline Phosphatase Troponin I Total Protein Albumin - Imaging Impressions Chest X-Ray 03/17/18 00:00 CONCLUSION: Interval improvement less interstitial edema. Assessment and Plan - Plan 72-year-old white male who was admitted with shock 3 days after undergoing femoral bypass surgery at [facility]. Spent 3 days in the ICU. Shock has resolved. New fever on 03/16 Ordering chest x-ray, blood cultures daughters initially refused (they are his healthcare decision makers) because they only want the staff at [facility] to do it -No recurrence since yesterday PAD Status post right femoral bypass surgery -03/16 CTA w run off: Complete occlusion of the left superficial femoral artery and left common iliac artery. The fem-fem graft appears patent. High-grade stenosis involving the right SFA, bilateral popliteal arteries with diminutive 2 vessel runoff to left ankle and single vessel runoff to right ankle. -Medical management per vascular surgery -Continue aspirin -Lipitor Alcohol abuse/withdrawal Librium -[facility] protocol Seizure precautions Metabolic acidosis -Zofran for nausea -Protonix -CT of the abdomen and pelvis, and aortic runoff as noted above -diet as tolerated advance as tolerated Anemia Possibly due to acute blood loss, patient initially had refused blood transfusions, monitor for now -iron level pending Lovenox Discharge Planning: Patient and family wanting to be transferred to [facility] for continuity of care. Meanwhile monitor for any fever recurrence and follow-up on blood work ordered today.
[2018-03-17 20:29] LABS: Iron 14 mcg/dL (65-175)
[2018-03-18] MEDS: Pantoprazole Inj 40 MG Vial IV.PUSH SCH ×2 (07:09→17:01)
[2018-03-18] MEDS: Sod Chloride 0.9% Inj 1,000 ML IV.CONT SCH ×2 (07:09→14:00)
[2018-03-18] MEDS: Chlorhexidine Gluconate 2% 1 Pack (2 Cloths) TOPICAL SCH (07:09)
[2018-03-18] MEDS: Senna/Docusate Sodium 8.6/50 MG Tablet PO SCH ×2 (08:20→20:42)
[2018-03-18] MEDS: Enoxaparin Inj 30 MG/0.3 ML Syringe SQ SCH (08:21)
[2018-03-18] MEDS: Multivitamin Inj 10 ML, Thiamine Inj 100 MG, Folic Acid Inj 1 MG in Sodium Chlor 0.9% I... IV.SIG SCH (08:27)
--- NOTE | 2018-03-18 08:37 | P.DS ---
DS: Providers Date of admission: 03/15/18 16:42 Primary care physician: UNKNOWN Consults: 03/15/18 16:39 Consult to Palliative Care Routine Consulting Provider: Davie George Reason for Consultation: Defined goals of care Notified:: Service Spoke with:: palma Date Notified:: 03/15/18 Time Notified:: 17:02 Ordering Provider: HERRERA 03/15/18 17:26 Consult to Vascular Surgery Stat Consulting Provider: Paula Carreon For STAT consult, spoke directly to:: Dr Tomlin-that spoke w surgeon directly Preferred Collar Folder Operator:: Paula Carreon Reason for Consultation: S/P Fem pop 2 days ago Notified:: Physician Spoke with:: Date Notified:: 03/15/18 Time Notified:: 17:34 Ordering Provider: HERRERA 03/16/18 08:04 Consult to Hospitalist Routine Consulting Provider: Dolores Solis Reason for Consultation: Assume care in am 03/17/18 Notified:: Service Spoke with:: SUNG Date Notified:: 03/16/18 Time Notified:: 09:20 Ordering Provider: JOE Brief History from admission: HPI as documented by the admitting physician: This is a 72 year old male that presented to the ED. Prior to this, the patient had been treated at the [facility] in [facility] and had undergone a right femoral bypass surgery for severe peripheral vascular disease 2 days ago. The patient was noted to be recently diagnosed with adenocarcinoma of the lung and was being clinically worked up when he was found to have severe peripheral vascular disease and initially scheduled for aortobifemoral bypass, however the patient was noted to be not medically optimized and the decision was made to do a femoral bypass. The patient has a history significant for COPD with long history of smoking ,so subsequently his surgery was performed under epidural anesthesia due to significant risk of deterioration in respiratory status. The patient medical history is also significant for heavy alcohol use at which he had stopped drinking 8-10 beers a day approximately 3 months ago in anticipation of surgery. However the patient continued to consume a half a gallon of vodka every 3 days. The patient was discharged from [facility] after early this a.m. and transported with family back to his home in [facility]. Immediately upon arrival, in approximately 1 hour ,the patient became agitated diaphoretic and began to have tremors the family assumed this was due to delirium tremens and gave the patient vodka to drink. At this point the patient went to the bedroom to lay down ,but continued to be agitated and have episodes of nausea and vomiting and complaint of severe abdominal pain. Of note, the patient has has a history of hypertension and had received lisinopril and hydrochlorothiazide early this a.m. at the hospital. With his progressive deterioration at home EMS was notified and upon their presentation the patient was noted to have a blood pressure systolic blood pressure in the 60s. The patient received several liters of IV fluid and enroute to the hospital he also received atropine per report. Upon admission to the ED the patient continued to have a low blood pressure received several more liters of fluid and the patient labs and imaging studies were performed. The patient was noted to have a metabolic acidosis. CT of the abdomen and pelvis with contrast and aortic runoff currently is pending. Patient's hemoglobin was noted to be 8.8, a type and screen was performed and 2 units of packed cells were ordered. Discussion with the ED physician, vascular surgery was consulted awaiting evaluation/recommendations. All history obtained was by family, according to their report the patient was worked up for surgery his ejection fraction was 75%, the patient has had chronic nausea and vomiting and was on omeprazole at home. With the recent diagnosis adenocarcinoma of the lung per report bilateral lower lobes the patient has requested CODE STATUS of DNR which was reiterated in the ED by himself as well as his family members. Patient was scheduled for radiation therapy in April 2018. critical care medicine has been consulted. Update on the day of discharge 03/18/18: Patient reports he is feeling very tired. SEGUNDO RN. No new issues. Awaiting for transport to [facility]. DS: Summary 72-year-old white male who was admitted with shock 3 days after undergoing femoral bypass surgery at [facility]. Spent 3 days in the ICU. Shock has resolved. Evaluation and treatment course detailed below: Hypovolemic shock: - Likely secondary to continued alcohol use and antihypertensive medications. - Shock resolved after IV fluid resuscitation. - Continue to hold lisinopril and HCTZ on discharge PAD Status post right femoral bypass surgery -12/16 CTA w run off: Complete occlusion of the left superficial femoral artery and left common iliac artery. The fem-fem graft appears patent. High-grade stenosis involving the right SFA, bilateral popliteal arteries with diminutive 2 vessel runoff to left ankle and single vessel runoff to right ankle. -Medical management per vascular surgery consultation -Continue aspirin -Lipitor Alcohol abuse/withdrawal Librium -[facility] protocol Seizure precautions - The patient was counseled. Fever: Likely secondary to alcohol withdrawal. No clear source of infection - Fever resolved. Metabolic acidosis -Zofran for nausea -Protonix -CT of the abdomen and pelvis, and aortic runoff as noted above -diet as tolerated advance as tolerated Anemia Possibly due to acute blood loss from surgery in combination to some chronic anemia from alcohol abuse - H&H stable. History of lung cancer: - Patient has plan to start radiation in April. Advised outpatient follow-up. The patient is transferred to the [facility] in [facility] to continue care. 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 with feet slightly cool to the touch, unable to palpate any dorsalis pedis pulses on both feet Results Labs on day of discharge: Labs from last 24 hours 03/17/18 03/17/18 03/17/18 03:56 03:56 03:56 Sodium 137 Potassium 3.5 Chloride 107 Carbon Dioxide 24.2 Anion Gap 6 BUN 9 Creatinine 0.55 L Estimated GFR Greater than 89 Random Glucose 88 Hemoglobin A1c Calcium 7.4 L* Calcium Adj for Albumin 8.9 Phosphorus 1.7 L Magnesium 1.5 Iron Cancelled 14 L Total Bilirubin 0.4 AST 20 ALT 16 Alkaline Phosphatase 82 Troponin I Less than 0.02 L B-Natriuretic Peptide 252 H Total Protein 5.6 L Albumin 2.1 L MTS Gel Crossmatch 03/17/18 03/15/18 03:56 17:41 Sodium Potassium Chloride Carbon Dioxide Anion Gap BUN Creatinine Estimated GFR Random Glucose Hemoglobin A1c 5.1 Calcium Calcium Adj for Albumin Phosphorus Magnesium Iron Total Bilirubin AST ALT Alkaline Phosphatase Troponin I B-Natriuretic Peptide Total Protein Albumin MTS Gel Crossmatch See Detail Impressions ITS Impressions Aorta w/Runoff CTA 03/15/18 15:24 CONCLUSION: 1. 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 2. The fem-fem graft appears patent. 3. High-grade stenosis involving the right SFA, bilateral popliteal arteries with diminutive 2 vessel runoff to left ankle and single vessel runoff to right ankle. Chest X-Ray 03/17/18 00:00 CONCLUSION: Interval improvement less interstitial edema. Discharge Plan Discharge Disposition Patient Disposition: 71 Transfer To Other Facility Discharge Condition Condition: Stable Discharge Order Discharge Orders: Discharge Order (Routine); Ordered 03/18/18 Ordered By: Nancy Long Discharge Details Anticipated Discharge Date: 03/15/18 Physicians Team Primary Care Provider: UNKNOWN, Attending Provider: Nancy Long Other Providers: Paula Carreon ; Davie George ; Tashi Rachel Rxs /Orders / Referrals /Forms Prescriptions: Continue nicotine 21 mg/24 hr Patch 24 Hour 1 patch TRANSDERMAL DAILY RF: 0 codeine sulfate 30 mg Tablet 30 mg PO Q4-6H PRN (Reason: Pain) RF: 0 omeprazole 20 mg Tablet,Delayed Release (Dr/Ec) 20 mg PO DAILY RF: 0 Discontinued hydrochlorothiazide 25 mg Tablet 25 mg PO DAILY RF: 0 lisinopril 40 mg Tablet 40 mg PO DAILY RF: 0 Referrals: UNKNOWN, [Primary Care Provider] - See Instructions Status ED Status: Left Department
[2018-03-19] MEDS: Sod Chloride 0.9% Inj 1,000 ML IV.CONT SCH ×2 (01:35→16:04)
[2018-03-19] MEDS: Pantoprazole Inj 40 MG Vial IV.PUSH SCH ×2 (07:07→17:06)
--- NOTE | 2018-03-19 08:43 | P.PNIM ---
Subjective Interval history: Patient reports he is feeling ok today except for being very tired. No new issues. Discussed with RN. Still awaiting for a bed at the [facility]. Physical Exam Vital signs: Last Vital Signs Temp 98.7 F 03/19/18 00:00 Pulse 87 03/19/18 07:00 Resp 18 03/19/18 00:00 BP 161/74 H 03/19/18 00:00 Pulse Ox 95 03/19/18 00:00 Intake & Output 03/17/18 03/18/18 03/19/18 03/20/18 06:59 06:59 06:59 06:59 Intake Total 951.2 / 951.2 2591.2 / 2591.2 2211.2 / 2211.2 Output Total 450 / 450 1050 / 1050 1740 / 1740 Balance 501.2 / 501.2 1541.2 / 1541.2 471.2 / 471.2 Weight 76 kg 76.1 kg Narrative: Patient is awake and alert, no acute distress, appears fatigued Clear lungs bilaterally, unlabored breathing Heart sounds regular rate and rhythm Bilateral inguinal incisions appear clean dry and intact with no exudate noted 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 Spent 3 days in the ICU. Shock has resolved. Evaluation and treatment course detailed below. Patient is discharged to the CT in [facility]. He is waiting for a bed. Hypovolemic shock: - Likely secondary to continued alcohol use and antihypertensive medications. - Shock resolved after IV fluid resuscitation. - Blood pressure trending up. DC IVF and will consider restarting lisinopril and HCTZ on discharge PAD Status post right femoral bypass surgery at the CT in [facility] -03/16 CTA w run off: Complete occlusion of the left superficial femoral artery and left common iliac artery. The fem-fem graft appears patent. High-grade stenosis involving the right SFA, bilateral popliteal arteries with diminutive 2 vessel runoff to left ankle and single vessel runoff to right ankle. -Medical management per vascular surgery consultation -Continue aspirin -Lipitor - [facility] follow up advised. Alcohol abuse/withdrawal Librium -[facility] protocol Seizure precautions - The patient was counseled. Fever: Likely secondary to alcohol withdrawal. No clear source of infection - Fever resolved. Metabolic acidosis -Zofran for nausea -Protonix -CT of the abdomen and pelvis, and aortic runoff as noted above -diet as tolerated advance as tolerated Anemia Possibly due to acute blood loss from surgery in combination to some chronic anemia from alcohol abuse - H&H stable. History of lung cancer: - Patient has plan to start radiation in April. Advised outpatient follow-up. Progress Note: Quality VTE Deep Vein Thrombosis/Pulmonary Embolism Present on Admission: No
[2018-03-19] MEDS: Enoxaparin Inj 30 MG/0.3 ML Syringe SQ SCH (10:14)
[2018-03-19] MEDS: Senna/Docusate Sodium 8.6/50 MG Tablet PO SCH ×2 (10:15→22:40)
[2018-03-19] MEDS: Chlorhexidine Gluconate 2% 1 Pack (2 Cloths) TOPICAL SCH (22:42)
[2018-03-20] MEDS: Sod Chloride 0.9% Inj 1,000 ML IV.CONT SCH (03:28)
[2018-03-20] MEDS: Chlorhexidine Gluconate 2% 1 Pack (2 Cloths) TOPICAL SCH (03:28)
[2018-03-20] MEDS: Pantoprazole Inj 40 MG Vial IV.PUSH SCH ×2 (05:19→18:32)
--- NOTE | 2018-03-20 08:55 | P.PNIM ---
Subjective Interval history: Patient stated he was given laxative yesterday and had diarrhea. No diarrhea this morning. No chest pain. BP elevated. Physical Exam Vital signs: Last Vital Signs Temp 98.9 F 03/20/18 08:29 Pulse 94 H 03/20/18 08:29 Resp 16 03/20/18 08:29 BP 157/60 H 03/20/18 08:29 Pulse Ox 97 03/20/18 08:29 Intake & Output 03/18/18 03/19/18 03/20/18 03/21/18 06:59 06:59 06:59 06:59 Intake Total 2591.2 / 2591.2 2211.2 / 2211.2 1700 / 1700 Output Total 1050 / 1050 1740 / 1740 1302 / 1302 Balance 1541.2 / 1541.2 471.2 / 471.2 398 / 398 Weight 76 kg 76.1 kg Narrative: Patient is awake and alert, no acute distress, appears fatigued Clear lungs bilaterally, unlabored breathing Heart sounds regular rate and rhythm Bilateral inguinal incisions appear clean dry and intact with no exudate noted 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 Spent 3 days in the ICU. Shock has resolved. Evaluation and treatment course detailed below. Patient is discharged to the [facility] in [facility]. He is waiting for a bed. Hypovolemic shock: - Likely secondary to continued alcohol use and antihypertensive medications. - Shock resolved after IV fluid resuscitation. - Blood pressure trended up. Normally on Lisinopril and HCTZ at home. - Restart Lisinopril at 20 mg daily and continue to monitor. PAD Status post right femoral bypass surgery at the [facility] in [facility] -03/16 CTA w run off: Complete occlusion of the left superficial femoral artery and left common iliac artery. The fem-fem graft appears patent. High-grade stenosis involving the right SFA, bilateral popliteal arteries with diminutive 2 vessel runoff to left ankle and single vessel runoff to right ankle. -Medical management per vascular surgery consultation -Continue aspirin -Lipitor - [facility] follow up advised. Alcohol abuse/withdrawal Librium -[facility] protocol Seizure precautions - The patient was counseled. Fever: Likely secondary to alcohol withdrawal. No clear source of infection - Fever resolved. Metabolic acidosis: Resolved -Zofran for nausea -Protonix -CT of the abdomen and pelvis, and aortic runoff as noted above -Tolerating diet. Anemia Possibly due to acute blood loss from surgery in combination to some chronic anemia from alcohol abuse - H&H stable. History of lung cancer: - Patient has plan to start radiation in April. Advised outpatient follow-up. Discharge planning: Awaiting for a bed at the [facility]. Progress Note: Quality VTE Deep Vein Thrombosis/Pulmonary Embolism Present on Admission: No
[2018-03-20] MEDS: Lisinopril 20 MG Tablet PO SCH (10:54)
[2018-03-20] MEDS: Senna/Docusate Sodium 8.6/50 MG Tablet PO SCH ×2 (10:59→20:02)
[2018-03-20] MEDS: Enoxaparin Inj 30 MG/0.3 ML Syringe SQ SCH (11:00)
[2018-03-20] MEDS: Acetaminophen 325 MG Tablet PO PRN (22:29)
[2018-03-21 04:34] VITALS: RESP 18
[2018-03-21 05:18] LABS: Hematocrit 25.7 % (39.0-51.0); Hemoglobin 9.3 gm/dL (13.0-17.0); Mean Corpuscular Hemoglobin 38.4 pg (27.0-34.0); Mean Corpuscular Volume 105.7 fL (80.0-100.0); Mean Platelet Volume 7.2 fL (7.0-11.0); Platelet Count 286 th/mm3 (150-450); Red Blood Count 2.43 mil/mm3 (4.50-5.90); Red Cell Distribution Width 15.4 % (11.6-17.2); White Blood Count 7.7 th/mm3 (4.0-11.0)
[2018-03-21] MEDS: Pantoprazole Inj 40 MG Vial IV.PUSH SCH (05:20)
[2018-03-21 05:24] LABS: Mean Corpuscular HGB Conc 36.3 % (32.0-36.0)
[2018-03-21 05:35] LABS: Anion Gap 8 meq/L (5-15); Blood Urea Nitrogen 7 mg/dL (7-18); Calcium 8.3 mg/dL (8.5-10.1); Carbon Dioxide 25.3 meq/L (21.0-32.0); Chloride 107 meq/L (98-107); Glomerular Filtration Rate Greater Than 89 mL/min (>89); Glucose,Random 87 mg/dL (74-106); Potassium 3.4 meq/L (3.5-5.1); Sodium 140 meq/L (136-145)
--- NOTE | 2018-03-21 08:46 | P.PNIM ---
Subjective Interval history: Patient still waiting for a bed at the [facility]. Physical Exam Vital signs: Last Vital Signs Temp 98.2 F 03/21/18 04:00 Pulse 76 03/21/18 07:09 Resp 18 03/21/18 04:00 BP 141/66 H 03/21/18 04:00 Pulse Ox 97 03/21/18 04:00 Intake & Output 03/19/18 03/20/18 03/21/18 03/22/18 06:59 06:59 06:59 06:59 Intake Total 2211.2 / 2211.2 1700 / 1700 1440 / 1440 Output Total 1740 / 1740 1302 / 1302 1350 / 1350 Balance 471.2 / 471.2 398 / 398 90 / 90 Weight 76.1 kg 75.8 kg Narrative: Patient is awake and alert, no acute distress, appears fatigued Clear lungs bilaterally, unlabored breathing Heart sounds regular rate and rhythm Bilateral inguinal incisions appear clean dry and intact with no exudate noted 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 with feet slightly cool to the touch, unable to palpate any dorsalis pedis pulses on both feet Results Labs CBC & Chem 7: 03/21/18 03:29 03/21/18 03:29 Labs: Microbiology 03/19/18 11:11 Blood - Peripheral Aerobic Blood Culture - Preliminary No growth in 1 day 03/19/18 11:11 Blood - Peripheral Anaerobic Blood Culture - Preliminary No growth in 1 day 03/19/18 11:05 Blood - Peripheral Aerobic Blood Culture - Preliminary No growth in 1 day 03/19/18 11:05 Blood - Peripheral Anaerobic Blood Culture - Preliminary No growth in 1 day Assessment and Plan Plan 72-year-old white male who was admitted with shock 3 days after undergoing femoral bypass surgery at [facility]. Spent 3 days in the ICU. Shock has resolved. Evaluation and treatment course detailed below. Patient is discharged to the [facility] in [facility]. He is waiting for a bed. Hypovolemic shock: - Likely secondary to continued alcohol use and antihypertensive medications. - Shock resolved after IV fluid resuscitation. - Blood pressure trended up. Normally on Lisinopril and HCTZ at home. - Restarted Lisinopril at 20 mg daily and continue to monitor. BP acceptable today. PAD Status post right femoral bypass surgery at the [facility] in [facility] -03/16 CTA w run off: Complete occlusion of the left superficial femoral artery and left common iliac artery. The fem-fem graft appears patent. High-grade stenosis involving the right SFA, bilateral popliteal arteries with diminutive 2 vessel runoff to left ankle and single vessel runoff to right ankle. -Medical management per vascular surgery consultation -Continue aspirin -Lipitor - [facility] follow up advised. Alcohol abuse/withdrawal Librium -[facility] protocol Seizure precautions - The patient was counseled. Fever: Likely secondary to alcohol withdrawal. No clear source of infection - Fever resolved. Metabolic acidosis: Resolved -Zofran for nausea -Protonix -CT of the abdomen and pelvis, and aortic runoff as noted above -Tolerating diet. Anemia Possibly due to acute blood loss from surgery in combination to some chronic anemia from alcohol abuse - H&H stable. History of lung cancer: - Patient has plan to start radiation in April. Advised outpatient follow-up. Discharge planning: Awaiting for a bed at the [facility]. Progress Note: Quality VTE Deep Vein Thrombosis/Pulmonary Embolism Present on Admission: No
[2018-03-21 08:50] VITALS: BP 143/66; TEMP 98.5; O2SAT 98
--- NOTE | 2018-03-21 09:18 | P.DS ---
DS: Providers Date of admission: 03/15/18 16:42 Primary care physician: UNKNOWN Consults: 03/15/18 16:39 Consult to Palliative Care Routine Consulting Provider: Davie George Reason for Consultation: Defined goals of care Notified:: Service Spoke with:: palma Date Notified:: 03/15/18 Time Notified:: 17:02 Ordering Provider: HERRERA 03/15/18 17:26 Consult to Vascular Surgery Stat Consulting Provider: Paula Carreon For STAT consult, spoke directly to:: Dr Tomlin-that spoke w surgeon directly Preferred Dairy Equipment Mechanic:: Paula Carreon Reason for Consultation: S/P Fem pop 2 days ago Notified:: Physician Spoke with:: Date Notified:: 03/15/18 Time Notified:: 17:34 Ordering Provider: HERRERA 03/16/18 08:04 Consult to Hospitalist Routine Consulting Provider: Dolores Solis Reason for Consultation: Assume care in am 03/17/18 Notified:: Service Spoke with:: SUNG Date Notified:: 03/16/18 Time Notified:: 09:20 Ordering Provider: JOE 03/21/18 08:15 HUB Only Consult Order Routine Consulting Provider: [employer] Brief History from admission: HPI as documented by the admitting physician: This is a 72 year old male that presented to the ED. Prior to this, the patient had been treated at the [facility] in [facility] and had undergone a right femoral bypass surgery for severe peripheral vascular disease 2 days ago. The patient was noted to be recently diagnosed with adenocarcinoma of the lung and was being clinically worked up when he was found to have severe peripheral vascular disease and initially scheduled for aortobifemoral bypass, however the patient was noted to be not medically optimized and the decision was made to do a femoral bypass. The patient has a history significant for COPD with long history of smoking ,so subsequently his surgery was performed under epidural anesthesia due to significant risk of deterioration in respiratory status. The patient medical history is also significant for heavy alcohol use at which he had stopped drinking 8-10 beers a day approximately 3 months ago in anticipation of surgery. However the patient continued to consume a half a gallon of vodka every 3 days. The patient was discharged from [facility] after early this a.m. and transported with family back to his home in [facility]. Immediately upon arrival, in approximately 1 hour ,the patient became agitated diaphoretic and began to have tremors the family assumed this was due to delirium tremens and gave the patient vodka to drink. At this point the patient went to the bedroom to lay down ,but continued to be agitated and have episodes of nausea and vomiting and complaint of severe abdominal pain. Of note, the patient has has a history of hypertension and had received lisinopril and hydrochlorothiazide early this a.m. at the hospital. With his progressive deterioration at home EMS was notified and upon their presentation the patient was noted to have a blood pressure systolic blood pressure in the 60s. The patient received several liters of IV fluid and enroute to the hospital he also received atropine per report. Upon admission to the ED the patient continued to have a low blood pressure received several more liters of fluid and the patient labs and imaging studies were performed. The patient was noted to have a metabolic acidosis. CT of the abdomen and pelvis with contrast and aortic runoff currently is pending. Patient's hemoglobin was noted to be 8.8, a type and screen was performed and 2 units of packed cells were ordered. Discussion with the ED physician, vascular surgery was consulted awaiting evaluation/recommendations. All history obtained was by family, according to their report the patient was worked up for surgery his ejection fraction was 75%, the patient has had chronic nausea and vomiting and was on omeprazole at home. With the recent diagnosis adenocarcinoma of the lung per report bilateral lower lobes the patient has requested CODE STATUS of DNR which was reiterated in the ED by himself as well as his family members. Patient was scheduled for radiation therapy in April 2018. critical care medicine has been consulted. Update on the day of discharge 03/18/18: Patient reports he is feeling very tired. SEGUNDO RN. No new issues. Awaiting for transport to [facility]. DS: Summary 72-year-old white male who was admitted with shock 3 days after undergoing femoral bypass surgery at [facility]. Spent 3 days in the ICU. Shock has resolved. Evaluation and treatment course detailed below: Hypovolemic shock: - Likely secondary to continued alcohol use and antihypertensive medications. - Shock resolved after IV fluid resuscitation. - BP recovered. Lisinopril restarted but HCTZ still on hold. Outpatient follow up advised. PAD Status post right femoral bypass surgery -03/16 CTA w run off: Complete occlusion of the left superficial femoral artery and left common iliac artery. The fem-fem graft appears patent. High-grade stenosis involving the right SFA, bilateral popliteal arteries with diminutive 2 vessel runoff to left ankle and single vessel runoff to right ankle. -Medical management per vascular surgery consultation -Continue aspirin -Lipitor Alcohol abuse/withdrawal Patient treated with Librium -[facility] protocol Seizure precautions - The patient was counseled. He has a couple more days worth to completely wean off Librium. Fever: Likely secondary to alcohol withdrawal. No clear source of infection - Fever resolved. Metabolic acidosis -Zofran for nausea -Protonix -CT of the abdomen and pelvis, and aortic runoff as noted above -diet as tolerated advance as tolerated Anemia Possibly due to acute blood loss from surgery in combination to some chronic anemia from alcohol abuse - H&H stable. History of lung cancer: - Patient has plan to start radiation in April. Advised outpatient follow-up. Discussed with the patient and his daughter on the day of discharge. His condition has improved and [facility] is [facility] Time Spent with Patient Total time spent providing and/or coordinating discharge services: Quality: VTE Deep Vein Thrombosis/Pulmonary Embolism Present on Admission: No Results Labs on day of discharge: Labs from last 24 hours 03/21/18 03/21/18 03:29 03:29 WBC 7.7 RBC 2.43 L Hgb 9.3 L Hct 25.7 L MCV 105.7 H MCH 38.4 H MCHC 36.3 H RDW 15.4 Plt Count 286 D MPV 7.2 Sodium 140 Potassium 3.4 L Chloride 107 Carbon Dioxide 25.3 Anion Gap 8 BUN 7 Creatinine 0.68 Estimated GFR Greater than 89 Random Glucose 87 Calcium 8.3 L Preliminary micro results at discharge 03/19/18 11:11 Aerobic Blood Culture - Preliminary Blood - Peripheral No growth in 1 day Anaerobic Blood Culture - Preliminary No growth in 1 day 03/19/18 11:05 Aerobic Blood Culture - Preliminary Blood - Peripheral No growth in 1 day Anaerobic Blood Culture - Preliminary No growth in 1 day Impressions ITS Impressions Aorta w/Runoff CTA 03/15/18 15:24 CONCLUSION: 1. 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 2. The fem-fem graft appears patent. 3. High-grade stenosis involving the right SFA, bilateral popliteal arteries with diminutive 2 vessel runoff to left ankle and single vessel runoff to right ankle. Chest X-Ray 03/17/18 00:00 CONCLUSION: Interval improvement less interstitial edema. Discharge Plan Discharge Disposition Patient Disposition: 03 Discharge to SNF Discharge Condition Condition: Stable Discharge Order Discharge Orders: Discharge Order (Routine); Ordered 03/18/18 Ordered By: Nancy Long Discharge Details Anticipated Discharge Date: 03/15/18 Physicians Team Primary Care Provider: UNKNOWN, Attending Provider: Nancy Long Other Providers: Paula Carreon ; Davie George ; Tashi Rachel ; [employer],Agency Rxs /Orders / Referrals /Forms Prescriptions: New chlordiazepoxide HCl 5 mg Capsule 5 mg PO DIRECTED PRN (Reason: Agitation And/Or Hallucination) Qty: 4 RF: 0 Continue codeine sulfate 30 mg Tablet 30 mg PO Q4-6H PRN (Reason: Pain) RF: 0 lisinopril 40 mg Tablet 40 mg PO DAILY RF: 0 omeprazole 20 mg Tablet,Delayed Release (Dr/Ec) 20 mg PO DAILY RF: 0 Discontinued hydrochlorothiazide 25 mg Tablet 25 mg PO DAILY RF: 0 No Action nicotine 21 mg/24 hr Patch 24 Hour 1 patch TRANSDERMAL DAILY RF: 0 Referrals: UNKNOWN, [Primary Care Provider] - See Instructions Discharge Interventions Interventions: Discharge Planning - Case Management Last Done: 03/21/18 08:16 Status ED Status: Left Department
[2018-03-21] MEDS: Lisinopril 20 MG Tablet PO SCH (10:37)
[2018-03-21] MEDS: Enoxaparin Inj 30 MG/0.3 ML Syringe SQ SCH (10:40)
[2018-03-21] MEDS: Senna/Docusate Sodium 8.6/50 MG Tablet PO SCH (10:40)
[2018-03-21 12:13] VITALS: PULSE 83
== END 2018-03-21 13:30 ==
LOC: NEPC 15:14 → NEDA 16:42 → HIMC 20:45 → HCPC 03-16 16:10
PROVIDERS: ADMIT Family Medicine; ATTEND Family Medicine